=== PATIENT | male | born 1945 | race Caucasian/White ===

== ENCOUNTER 2020-05-24 12:15 | Inpatient (IN) | payer OTHER, MEDICARE ==
[2020-05-24 12:33] VITALS: BMI 31.7
[2020-05-24 13:24] LABS: BASO % 0.7 % (0-2.0); EOS % 2.1 % (0-4.5); HEMOGLOBIN 14.2 GM/dL (11.7-16.9); LYMPH % 9.4 % (8-40); MCH 32.5 pg (25.7-33.7); MCHC 34.5 g/dl (32.0-35.9); MEAN CELL VOLUME 94.3 fl (80-96); MEAN PLT VOLUME 9.5 fl (7.5-11.1); MONO % 5.2 % (3.8-10.2); NEUT % 82.6 % (42.8-82.8); PLATELET COUNT 172 K/MM3 (134-434); RBC 4.35 M/mm3 (4.00-5.60); RDW 12.7 % (11.9-15.9); WHITE BLOOD COUNT 9.8 K/mm3 (4.0-10.0)
[2020-05-24 13:32] LABS: INR 1.07 (0.83-1.09); PROTHROMBIN TIME (PATIENT) 13.1 SEC (9.7-13.0)
[2020-05-24 13:34] LABS: ACTIVATED PTT 32.5 SECONDS (25.2-36.5)
[2020-05-24 13:44] LABS: POTASSIUM 4.1 mmol/L (3.5-5.1)
[2020-05-24 13:46] LABS: CALCIUM 8.6 mg/dL (8.5-10.1)
[2020-05-24 13:47] LABS: ALBUMIN 3.5 g/dl (3.4-5.0); BLOOD UREA NITROGEN 9.7 mg/dL (7-18)
[2020-05-24 13:50] LABS: CREATININE 0.6 mg/dL (0.55-1.3)
[2020-05-24 13:51] LABS: BILIRUBIN,TOTAL 1.4 mg/dL (0.2-1); TOT PROT 6.4 g/dl (6.4-8.2)
[2020-05-24] MEDS ORDERED: ACETAMINOPHEN 500 MG TABLET (FP) ONE (14:01)
[2020-05-24] MEDS ORDERED: ACETAMINOPHEN 500 MG TABLET (FP) PO ONE (14:01)
[2020-05-24 14:29] LABS: ERYTHROCYTE SEDIMENTATION RATE 34 mm/hr (0-20)
[2020-05-25] MEDS ORDERED: MELATONIN 5 MG TABLETS PO ONE (02:54)
[2020-05-25] MEDS ORDERED: PIPERACILLIN/TAZOB 3.375 GM 3.375 GM in DEXTROSE 5%-WATER - 50 ML IVPB SCH ×2 (08:30→10:00)
[2020-05-25] MEDS ORDERED: DEXTROSE 5%-WATER - 50 ML IVPB ONE ×2 (09:31→16:03)
[2020-05-25] MEDS ORDERED: PIPERACILLIN/TAZOBACTAM 3.375 GM VIAL IVPB ONE ×2 (09:31→16:03)
[2020-05-25] MEDS: LOSARTAN POTASSIUM 50 MG TABLET PO SCH (09:44)
[2020-05-25] MEDS: ASPIRIN 81 MG CHEWABLE TABLETS PO SCH (09:44)
[2020-05-25] MEDS: EZETIMIBE 10 MG TABLET (FP) PO SCH (09:44)
[2020-05-25] MEDS: amLODIPine BESYLATE 10 MG TABLET (FP) PO SCH (09:44)
[2020-05-25] MEDS: ENOXAPARIN NA (PORCINE) 40 MG/0.4 ML DISP.SYRIN SQ SCH (09:44)
[2020-05-25] MEDS: TAMSULOSIN HCL 0.4 MG CAP PO SCH (09:44)
[2020-05-25 09:47] LABS: BASO % 0.3 % (0-2.0); HEMOGLOBIN 13.5 GM/dL (11.7-16.9); LYMPH % 11.9 % (8-40); MCH 32.2 pg (25.7-33.7); MCHC 33.8 g/dl (32.0-35.9); MEAN CELL VOLUME 95.4 fl (80-96); MEAN PLT VOLUME 9.2 fl (7.5-11.1); MONO % 5.8 % (3.8-10.2); PLATELET COUNT 162 K/MM3 (134-434); RBC 4.19 M/mm3 (4.00-5.60); RDW 12.8 % (11.9-15.9); WHITE BLOOD COUNT 8.2 K/mm3 (4.0-10.0)
[2020-05-25] MEDS ORDERED: PATIENT'S OWN MEDICATION (NON-FORMULARY) (Amlodipine Bes/Olmesartan Med [Amlodipine-Olmesa PO SCH (10:00)
[2020-05-25 10:12] LABS: POTASSIUM 3.8 mmol/L (3.5-5.1)
[2020-05-25 10:47] LABS: ALBUMIN 3.2 g/dl (3.4-5.0); CALCIUM 8.7 mg/dL (8.5-10.1)
[2020-05-25 10:48] LABS: BLOOD UREA NITROGEN 13.9 mg/dL (7-18)
[2020-05-25 10:51] LABS: CREATININE 0.7 mg/dL (0.55-1.3)
[2020-05-25 10:52] LABS: TOT PROT 5.8 g/dl (6.4-8.2)
[2020-05-25 10:54] LABS: BILIRUBIN,TOTAL 1.2 mg/dL (0.2-1)
[2020-05-25] MEDS: oxyCODONE HCL 5 MG TABLET PO PRN ×2 (14:04→20:38)
[2020-05-25] MEDS: ACETAMINOPHEN 325 MG TABLET (FP) PO PRN (14:04)
[2020-05-25] MEDS: PIPERACILLIN/TAZOB 3.375 GM 3.375 GM in DEXTROSE 5%-WATER - 50 ML IVPB SCH (17:25)
[2020-05-25] MEDS ORDERED: PT OWN MED DRAWER 7, Y5N ONE (20:36)
[2020-05-25] MEDS: ZOLPIDEM TARTRATE 5 MG TABLET PO PRN (20:40)
[2020-05-25] MEDS: FLUTICASONE PROP 0.05% 16 GM NASAL SPRAY NS SCH (21:00)
[2020-05-26] MEDS ORDERED: DEXTROSE 5%-WATER - 50 ML IVPB ONE ×3 (01:25→17:15)
[2020-05-26] MEDS ORDERED: PIPERACILLIN/TAZOBACTAM 3.375 GM VIAL IVPB ONE ×3 (01:25→17:15)
[2020-05-26] MEDS: PIPERACILLIN/TAZOB 3.375 GM 3.375 GM in DEXTROSE 5%-WATER - 50 ML IVPB SCH ×3 (01:35→17:23)
[2020-05-26] MEDS: TAMSULOSIN HCL 0.4 MG CAP PO SCH (09:20)
[2020-05-26] MEDS: oxyCODONE HCL 5 MG TABLET PO PRN ×2 (09:42→17:23)
[2020-05-26] MEDS: ACETAMINOPHEN 325 MG TABLET (FP) PO PRN ×2 (09:44→17:25)
[2020-05-26] MEDS: LOSARTAN POTASSIUM 50 MG TABLET PO SCH (09:45)
[2020-05-26] MEDS: EZETIMIBE 10 MG TABLET (FP) PO SCH (09:45)
[2020-05-26] MEDS: amLODIPine BESYLATE 10 MG TABLET (FP) PO SCH (09:46)
[2020-05-26] MEDS: ASPIRIN 81 MG CHEWABLE TABLETS PO SCH (09:46)
[2020-05-26] MEDS: METHYL SALICYLATE/MENTHOL OINT 30 GM TUBE TP PRN (09:48)
[2020-05-26] MEDS: ENOXAPARIN NA (PORCINE) 40 MG/0.4 ML DISP.SYRIN SQ SCH (09:49)
[2020-05-26] MEDS: FLUTICASONE PROP 0.05% 16 GM NASAL SPRAY NS SCH (21:06)
[2020-05-27] MEDS ORDERED: PIPERACILLIN/TAZOBACTAM 3.375 GM VIAL IVPB ONE ×3 (00:12→17:28)
[2020-05-27] MEDS ORDERED: DEXTROSE 5%-WATER - 50 ML IVPB ONE ×3 (00:12→17:28)
[2020-05-27] MEDS: PIPERACILLIN/TAZOB 3.375 GM 3.375 GM in DEXTROSE 5%-WATER - 50 ML IVPB SCH ×3 (02:09→18:08)
[2020-05-27] MEDS: ACETAMINOPHEN 325 MG TABLET (FP) PO PRN ×2 (06:04→16:24)
[2020-05-27] MEDS: oxyCODONE HCL 5 MG TABLET PO PRN ×2 (06:05→16:26)
[2020-05-27] MEDS: LOSARTAN POTASSIUM 50 MG TABLET PO SCH ×2 (07:39→09:22)
[2020-05-27] MEDS: amLODIPine BESYLATE 10 MG TABLET (FP) PO SCH ×2 (07:40→09:22)
[2020-05-27 08:15] LABS: BASO % 0.9 % (0-2.0); EOS % 3.6 % (0-4.5); HEMATOCRIT 41.5 % (35.4-49); HEMOGLOBIN 14.1 GM/dL (11.7-16.9); LYMPH % 15.9 % (8-40); MCH 32.5 pg (25.7-33.7); MCHC 34.1 g/dl (32.0-35.9); MEAN CELL VOLUME 95.5 fl (80-96); MEAN PLT VOLUME 8.9 fl (7.5-11.1); MONO % 6.3 % (3.8-10.2); NEUT % 73.3 % (42.8-82.8); PLATELET COUNT 198 K/MM3 (134-434); RBC 4.34 M/mm3 (4.00-5.60); RDW 12.6 % (11.9-15.9); WHITE BLOOD COUNT 7.5 K/mm3 (4.0-10.0)
[2020-05-27 08:20] LABS: POTASSIUM 3.6 mmol/L (3.5-5.1)
[2020-05-27 08:30] LABS: CALCIUM 8.4 mg/dL (8.5-10.1)
[2020-05-27 08:31] LABS: BLOOD UREA NITROGEN 13.5 mg/dL (7-18)
[2020-05-27 08:34] LABS: CREATININE 0.8 mg/dL (0.55-1.3)
[2020-05-27] MEDS: ASPIRIN 81 MG CHEWABLE TABLETS PO SCH (09:18)
[2020-05-27] MEDS: TAMSULOSIN HCL 0.4 MG CAP PO SCH (09:18)
[2020-05-27] MEDS: ENOXAPARIN NA (PORCINE) 40 MG/0.4 ML DISP.SYRIN SQ SCH (09:18)
[2020-05-27] MEDS: EZETIMIBE 10 MG TABLET (FP) PO SCH (09:18)
[2020-05-27] MEDS ORDERED: CYCLOBENZAPRINE HCL 10 MG TABLET (FP) PO SCH (09:45)
[2020-05-27] MEDS: PANTOPRAZOLE 20 MG TABLET PO SCH ×2 (10:40→22:02)
[2020-05-27] MEDS: CYCLOBENZAPRINE HCL 10 MG TABLET (FP) PO SCH ×3 (10:40→22:02)
[2020-05-27] MEDS: NAPROXEN 500 MG TABLET PO SCH ×2 (12:43→22:02)
[2020-05-27] MEDS: METHYL SALICYLATE/MENTHOL OINT 30 GM TUBE TP PRN (13:34)
[2020-05-27] MEDS ORDERED: PT OWN MED DRAWER 7, Y5N ONE (21:57)
[2020-05-27] MEDS: FLUTICASONE PROP 0.05% 16 GM NASAL SPRAY NS SCH (22:03)
[2020-05-27] MEDS ORDERED: POLYETHYLENE GLYCOL 3350 119 GM BTL PO ONE (23:00)
[2020-05-28] MEDS ORDERED: PIPERACILLIN/TAZOBACTAM 3.375 GM VIAL IVPB ONE ×3 (01:48→17:57)
[2020-05-28] MEDS ORDERED: DEXTROSE 5%-WATER - 50 ML IVPB ONE ×3 (01:48→17:58)
[2020-05-28] MEDS: PIPERACILLIN/TAZOB 3.375 GM 3.375 GM in DEXTROSE 5%-WATER - 50 ML IVPB SCH ×3 (01:50→18:16)
[2020-05-28] MEDS: CYCLOBENZAPRINE HCL 10 MG TABLET (FP) PO SCH ×3 (06:54→21:48)
[2020-05-28] MEDS ORDERED: PT OWN MED DRAWER 7, Y5N ONE ×2 (09:03→19:57)
[2020-05-28] MEDS: NAPROXEN 500 MG TABLET PO SCH ×2 (09:12→22:52)
[2020-05-28] MEDS: TAMSULOSIN HCL 0.4 MG CAP PO SCH (09:13)
[2020-05-28] MEDS: LOSARTAN POTASSIUM 50 MG TABLET PO SCH (09:13)
[2020-05-28] MEDS: amLODIPine BESYLATE 10 MG TABLET (FP) PO SCH (09:13)
[2020-05-28] MEDS: EZETIMIBE 10 MG TABLET (FP) PO SCH (09:14)
[2020-05-28] MEDS: ASPIRIN 81 MG CHEWABLE TABLETS PO SCH (09:14)
[2020-05-28] MEDS: PANTOPRAZOLE 20 MG TABLET PO SCH ×2 (09:14→21:48)
[2020-05-28] MEDS: ENOXAPARIN NA (PORCINE) 40 MG/0.4 ML DISP.SYRIN SQ SCH (09:14)
[2020-05-28] MEDS: POTASSIUM CHLORIDE TABS 20 MEQ TABLET.ER (FP) PO SCH (11:23)
[2020-05-28] MEDS: FUROSEMIDE 40 MG TABLET (FP) PO SCH (11:23)
[2020-05-28] MEDS: POLYETHYLENE GLYCOL 3350 119 GM BTL PO SCH (11:24)
[2020-05-28] MEDS: ZOLPIDEM TARTRATE 5 MG TABLET PO PRN (21:48)
[2020-05-28] MEDS: FLUTICASONE PROP 0.05% 16 GM NASAL SPRAY NS SCH (21:54)
[2020-05-29] MEDS ORDERED: DEXTROSE 5%-WATER - 50 ML IVPB ONE ×3 (01:41→16:58)
[2020-05-29] MEDS ORDERED: PIPERACILLIN/TAZOBACTAM 3.375 GM VIAL IVPB ONE ×3 (01:41→16:58)
[2020-05-29] MEDS: PIPERACILLIN/TAZOB 3.375 GM 3.375 GM in DEXTROSE 5%-WATER - 50 ML IVPB SCH ×3 (01:57→17:06)
[2020-05-29] MEDS: CYCLOBENZAPRINE HCL 10 MG TABLET (FP) PO SCH ×3 (06:28→21:24)
[2020-05-29] MEDS ORDERED: PT OWN MED DRAWER 7, Y5N ONE ×2 (10:10→20:23)
[2020-05-29] MEDS: ENOXAPARIN NA (PORCINE) 40 MG/0.4 ML DISP.SYRIN SQ SCH (10:15)
[2020-05-29] MEDS: POLYETHYLENE GLYCOL 3350 119 GM BTL PO SCH (10:15)
[2020-05-29] MEDS: LOSARTAN POTASSIUM 50 MG TABLET PO SCH (10:16)
[2020-05-29] MEDS: PANTOPRAZOLE 20 MG TABLET PO SCH ×2 (10:16→21:23)
[2020-05-29] MEDS: ASPIRIN 81 MG CHEWABLE TABLETS PO SCH (10:16)
[2020-05-29] MEDS: NAPROXEN 500 MG TABLET PO SCH ×2 (10:16→21:24)
[2020-05-29] MEDS: amLODIPine BESYLATE 10 MG TABLET (FP) PO SCH (10:16)
[2020-05-29] MEDS: FUROSEMIDE 40 MG TABLET (FP) PO SCH (10:16)
[2020-05-29] MEDS: TAMSULOSIN HCL 0.4 MG CAP PO SCH (10:16)
[2020-05-29] MEDS: POTASSIUM CHLORIDE TABS 20 MEQ TABLET.ER (FP) PO SCH (10:16)
[2020-05-29] MEDS: EZETIMIBE 10 MG TABLET (FP) PO SCH (10:17)
[2020-05-29] MEDS: ZOLPIDEM TARTRATE 5 MG TABLET PO PRN (21:24)
[2020-05-29] MEDS: FLUTICASONE PROP 0.05% 16 GM NASAL SPRAY NS SCH (21:24)
[2020-05-30] MEDS ORDERED: PIPERACILLIN/TAZOBACTAM 3.375 GM VIAL IVPB ONE ×2 (01:29→09:45)
[2020-05-30] MEDS ORDERED: DEXTROSE 5%-WATER - 50 ML IVPB ONE ×2 (01:29→09:45)
[2020-05-30] MEDS: PIPERACILLIN/TAZOB 3.375 GM 3.375 GM in DEXTROSE 5%-WATER - 50 ML IVPB SCH ×2 (01:56→11:30)
[2020-05-30] MEDS: CYCLOBENZAPRINE HCL 10 MG TABLET (FP) PO SCH ×2 (05:40→13:00)
[2020-05-30] MEDS: TAMSULOSIN HCL 0.4 MG CAP PO SCH (10:12)
[2020-05-30] MEDS: amLODIPine BESYLATE 10 MG TABLET (FP) PO SCH (10:12)
[2020-05-30] MEDS: POTASSIUM CHLORIDE TABS 20 MEQ TABLET.ER (FP) PO SCH (10:12)
[2020-05-30] MEDS: NAPROXEN 500 MG TABLET PO SCH (10:13)
[2020-05-30] MEDS: FUROSEMIDE 40 MG TABLET (FP) PO SCH (10:13)
[2020-05-30] MEDS: EZETIMIBE 10 MG TABLET (FP) PO SCH (10:13)
[2020-05-30] MEDS: PANTOPRAZOLE 20 MG TABLET PO SCH (10:13)
[2020-05-30] MEDS: ASPIRIN 81 MG CHEWABLE TABLETS PO SCH (10:13)
[2020-05-30] MEDS: LOSARTAN POTASSIUM 50 MG TABLET PO SCH (10:14)
[2020-05-30] MEDS: POLYETHYLENE GLYCOL 3350 119 GM BTL PO SCH (10:14)
[2020-05-30] MEDS: ENOXAPARIN NA (PORCINE) 40 MG/0.4 ML DISP.SYRIN SQ SCH (10:14)
[2020-05-30 15:40] VITALS: BP 154/83; PULSE 66; TEMP 98.1
== END 2020-05-30 16:39 | disposition home or self-care (01) | DRG 603 ==
LOC: JER 12:15 → JERBED 13:59 → J8W 05-25 00:14
PROVIDERS: ADMIT Internal Medicine; ATTEND Internal Medicine
DX: L03.116 Cellulitis of left lower limb (principal); I10 Essential (primary) hypertension; E78.5 Hyperlipidemia, unspecified
CPT/HCPCS: 36415; 71046-TC-FY; 80048; 80053; 82550; 83605; 85025; 85610; 85651; 85730; 86140; 93005; 93010; 93971-TC; 99285-25; C9803; U0003

== ENCOUNTER 2020-12-02 07:31 | Inpatient (IN) | payer OTHER, MEDICARE ==
[2020-12-02] MEDS ORDERED: ACETAMINOPHEN 1000 MG/100 ML VIAL (NON FORMULARY) IVPB ONE (08:33)
[2020-12-02] MEDS ORDERED: LACTATED RINGERS SOLUTION 1000 ML INFUS.BAG IV ONE (08:41)
[2020-12-02] MEDS ORDERED: ACETAMINOPHEN INJECTION 100 ML IVPB ONE (08:44)
[2020-12-02 09:34] LABS: BASO % 0.3 % (0-2.0); EOS % 0.7 % (0-4.5); HEMATOCRIT 36.4 % (35.4-49); HEMOGLOBIN 12.3 GM/dL (11.7-16.9); LYMPH % 2.5 % (8-40); MCH 31.1 pg (25.7-33.7); MCHC 33.7 g/dl (32.0-35.9); MEAN CELL VOLUME 92.2 fl (80-96); MONO % 1.5 % (3.8-10.2); PLATELET COUNT 137 10^3/uL (134-434); RBC 3.95 M/mm3 (4.00-5.60); RDW 12.9 % (11.9-15.9); WHITE BLOOD COUNT 11.3 K/mm3 (4.0-10.0)
[2020-12-02 09:41] LABS: INR 1.13 (0.83-1.09); PROTHROMBIN TIME (PATIENT) 13.8 SEC (9.7-13.0)
[2020-12-02 09:43] LABS: ACTIVATED PTT 27.4 SECONDS (25.2-36.5)
[2020-12-02 09:53] LABS: ALBUMIN 3.7 g/dl (3.4-5.0); CALCIUM 8.6 mg/dL (8.5-10.1)
[2020-12-02 09:55] LABS: BLOOD UREA NITROGEN 16.1 mg/dL (7-18)
[2020-12-02 09:57] LABS: CREATININE 1.1 mg/dL (0.55-1.3)
[2020-12-02 09:58] LABS: BILIRUBIN,TOTAL 1.5 mg/dL (0.2-1); TOT PROT 5.8 g/dl (6.4-8.2)
[2020-12-02 10:04] LABS: LACTIC ACID 2.1 mmol/L (0.4-2.0)
[2020-12-02] MEDS ORDERED: VANCOMYCIN HCL 2,000 MG in DEXTROSE 5%-WATER - 500 ML IVPB ONE (10:20)
[2020-12-02] MEDS ORDERED: PIPERACILLIN/TAZOB 4.5 GM 4.5 GM in DEXTROSE 5%-WATER 100 ML IVPB ONE (10:20)
[2020-12-02 10:30] LABS: ANISOCYTOSIS 0; MACROCYTOSIS 1+; PLATELET ESTIMATE DECREASED
[2020-12-02] MEDS ORDERED: PIPERACILLIN/TAZOB 4.5 GM 4.5 GM/100 ML BAG IVPB ONE (11:05)
[2020-12-02] MEDS ORDERED: VANCOMYCIN 1 GRAM (PRE-DOCKED) 2,000 MG/500 ML BAG IVPB ONE (11:16)
[2020-12-02] MEDS ORDERED: VANCOMYCIN HCL 1,500 MG in DEXTROSE 5%-WATER - 500 ML IVPB ONE (11:19)
[2020-12-02] MEDS ORDERED: VANCOMYCIN HCL 1,500 MG/500 ML BAG IVPB ONE (11:25)
[2020-12-02 11:40] LABS: EPI CELLS 1 /uL (0-25.1); HYALINE CASTS 3 /uL (0-3.1); URINE APPEARANCE CLOUDY; URINE BACTERIA >9,000 /uL (0-1359); URINE BILIRUBIN NEGATIVE (NEGATIVE); URINE COLOR YELLOW; URINE GLUCOSE (UA) NEGATIVE (NEGATIVE); URINE KETONE NEGATIVE (NEGATIVE); URINE LEUK ESTERASE 2+ (NEGATIVE); URINE NITRITE NEGATIVE (NEGATIVE); URINE PROTEIN 2+ (NEGATIVE); URINE RBC 6 /uL (0-23.9); URINE UROBILINOGEN 0.2 mg/dL (0.2-1.0); URINE WBC 471 /uL (0-25.8)
[2020-12-02 11:56] LABS: ERYTHROCYTE SEDIMENTATION RATE 17 mm/hr (0-20)
[2020-12-02] MEDS ORDERED: VANCOMYCIN PREMIX 1.5 GM 1,500 MG/300 ML BAG IVPB SCH ×2 (11:59→14:00)
[2020-12-02] MEDS ORDERED: VANCOMYCIN PREMIX 1.5 GM 1,500 MG/300 ML BAG IVPB ONE (12:00)
[2020-12-02] MEDS ORDERED: SODIUM CHLORIDE 1,000 ML IV STA (12:08)
[2020-12-02] MEDS ORDERED: SODIUM CHLORIDE 500 ML IV STA (12:09)
[2020-12-02] MEDS ORDERED: PIPERACILLIN/TAZOB 3.375 GM 3.375 GM in DEXTROSE 5%-WATER - 50 ML IVPB SCH (13:45)
[2020-12-02 15:34] VITALS: BMI 29.5
[2020-12-02] MEDS ORDERED: PIPERACILLIN/TAZOBACTAM 3.375 GM VIAL IVPB ONE (16:23)
[2020-12-02] MEDS ORDERED: DEXTROSE 5%-WATER - 50 ML IVPB ONE (16:23)
[2020-12-02] MEDS: PIPERACILLIN/TAZOB 3.375 GM 3.375 GM in DEXTROSE 5%-WATER - 50 ML IVPB SCH (17:10)
[2020-12-02] MEDS ORDERED: VANCOMYCIN HCL 1,500 MG in DEXTROSE 5%-WATER - 500 ML IVPB SCH (22:00)
[2020-12-02] MEDS ORDERED: ACETAMINOPHEN 500 MG TABLET (FP) PO ONE (22:26)
[2020-12-02] MEDS ORDERED: LIDOCAINE 5% TOPICAL PATCH TP ONE (22:27)
[2020-12-03] MEDS: VANCOMYCIN PREMIX 1.5 GM 1,500 MG/300 ML BAG IVPB SCH ×2 (00:08→13:41)
[2020-12-03] MEDS ORDERED: PIPERACILLIN/TAZOBACTAM 3.375 GM VIAL IVPB ONE ×3 (01:28→18:08)
[2020-12-03] MEDS ORDERED: DEXTROSE 5%-WATER - 50 ML IVPB ONE ×3 (01:28→18:08)
[2020-12-03] MEDS: PIPERACILLIN/TAZOB 3.375 GM 3.375 GM in DEXTROSE 5%-WATER - 50 ML IVPB SCH ×4 (02:58→18:58)
[2020-12-03] MEDS ORDERED: ENOXAPARIN NA (PORCINE) 40 MG/0.4 ML DISP.SYRIN SQ SCH (10:00)
[2020-12-03] MEDS ORDERED: LIDOCAINE PATCH REMOVAL MC SCH (10:00)
[2020-12-03] MEDS ORDERED: PATIENT'S OWN MEDICATION (NON-FORMULARY) (Amlodipine Bes/Olmesartan Med [Amlodipine-Olmesa PO SCH (10:00)
[2020-12-03] MEDS: LOSARTAN POTASSIUM 50 MG TABLET PO SCH (11:16)
[2020-12-03] MEDS: ASPIRIN 81 MG CHEWABLE TABLETS PO SCH (11:16)
[2020-12-03] MEDS: TORSEMIDE 20 MG TABLET (FP) PO SCH (11:16)
[2020-12-03] MEDS: amLODIPine BESYLATE 10 MG TABLET (FP) PO SCH (11:16)
[2020-12-03] MEDS: TAMSULOSIN HCL 0.4 MG CAP PO SCH (11:17)
[2020-12-03] MEDS ORDERED: PT OWN MED DRAWER 7, Y5N ONE ×2 (11:18→13:40)
[2020-12-03] MEDS: EZETIMIBE 10 MG TABLET (FP) PO SCH (11:19)
[2020-12-03] MEDS ORDERED: ACETAMINOPHEN 325 MG TABLET (FP) PO PRN (11:55)
[2020-12-03 14:11] LABS: BASO % 0.7 % (0-2.0); HEMATOCRIT 33.3 % (35.4-49); HEMOGLOBIN 11.4 GM/dL (11.7-16.9); LYMPH % 8.9 % (8-40); MCHC 34.3 g/dl (32.0-35.9); MEAN CELL VOLUME 93.5 fl (80-96); MEAN PLT VOLUME 9.2 fl (7.5-11.1); NEUT % 83.4 % (42.8-82.8); PLATELET COUNT 97 10^3/uL (134-434); RBC 3.57 M/mm3 (4.00-5.60); RDW 13.6 % (11.9-15.9); WHITE BLOOD COUNT 6.6 K/mm3 (4.0-10.0)
[2020-12-03 14:30] LABS: CALCIUM 8.5 mg/dL (8.5-10.1)
[2020-12-03 14:31] LABS: ALBUMIN 3.2 g/dl (3.4-5.0); BLOOD UREA NITROGEN 11.8 mg/dL (7-18)
[2020-12-03 14:34] LABS: CREATININE 0.9 mg/dL (0.55-1.3)
[2020-12-03 14:35] LABS: BILIRUBIN,TOTAL 1.2 mg/dL (0.2-1)
[2020-12-03 14:36] LABS: TOT PROT 5.3 g/dl (6.4-8.2)
[2020-12-04] MEDS ORDERED: DEXTROSE 5%-WATER - 50 ML IVPB ONE ×3 (01:17→17:52)
[2020-12-04] MEDS ORDERED: PIPERACILLIN/TAZOBACTAM 3.375 GM VIAL IVPB ONE ×3 (01:17→17:51)
[2020-12-04] MEDS: PIPERACILLIN/TAZOB 3.375 GM 3.375 GM in DEXTROSE 5%-WATER - 50 ML IVPB SCH ×3 (01:47→18:08)
[2020-12-04 08:55] LABS: BASO % 1.1 % (0-2.0); EOS % 3.4 % (0-4.5); HEMATOCRIT 33.6 % (35.4-49); HEMOGLOBIN 11.7 GM/dL (11.7-16.9); LYMPH % 14.5 % (8-40); MCH 32.1 pg (25.7-33.7); MCHC 34.7 g/dl (32.0-35.9); MEAN CELL VOLUME 92.5 fl (80-96); MEAN PLT VOLUME 8.9 fl (7.5-11.1); MONO % 8.4 % (3.8-10.2); NEUT % 72.6 % (42.8-82.8); RBC 3.63 M/mm3 (4.00-5.60); RDW 13.3 % (11.9-15.9); WHITE BLOOD COUNT 5.5 K/mm3 (4.0-10.0)
[2020-12-04] MEDS: TAMSULOSIN HCL 0.4 MG CAP PO SCH (09:00)
[2020-12-04 09:16] LABS: BLOOD UREA NITROGEN 10.1 mg/dL (7-18); CALCIUM 8.3 mg/dL (8.5-10.1)
[2020-12-04 09:20] LABS: CREATININE 0.8 mg/dL (0.55-1.3)
[2020-12-04] MEDS: ASPIRIN 81 MG CHEWABLE TABLETS PO SCH (10:10)
[2020-12-04] MEDS: LOSARTAN POTASSIUM 50 MG TABLET PO SCH (10:10)
[2020-12-04] MEDS: TORSEMIDE 20 MG TABLET (FP) PO SCH (10:11)
[2020-12-04] MEDS: amLODIPine BESYLATE 10 MG TABLET (FP) PO SCH (10:11)
[2020-12-04] MEDS: EZETIMIBE 10 MG TABLET (FP) PO SCH (10:16)
[2020-12-04 11:15] LABS: PLATELET COUNT 94 10^3/uL (134-434)
[2020-12-04] MEDS ORDERED: POTASSIUM CHLORIDE TABS 20 MEQ TABLET.ER (FP) PO SCH (13:30)
[2020-12-05] MEDS ORDERED: PIPERACILLIN/TAZOBACTAM 3.375 GM VIAL IVPB ONE ×3 (00:41→14:22)
[2020-12-05] MEDS ORDERED: DEXTROSE 5%-WATER - 50 ML IVPB ONE ×3 (00:42→14:22)
[2020-12-05] MEDS: PIPERACILLIN/TAZOB 3.375 GM 3.375 GM in DEXTROSE 5%-WATER - 50 ML IVPB SCH ×3 (01:01→17:05)
[2020-12-05 07:27] LABS: EOS % 3.8 % (0-4.5); HEMATOCRIT 35.7 % (35.4-49); HEMOGLOBIN 12.2 GM/dL (11.7-16.9); LYMPH % 19.7 % (8-40); MCH 31.7 pg (25.7-33.7); MCHC 34.1 g/dl (32.0-35.9); MEAN CELL VOLUME 92.9 fl (80-96); MEAN PLT VOLUME 8.8 fl (7.5-11.1); MONO % 9.6 % (3.8-10.2); NEUT % 65.9 % (42.8-82.8); PLATELET COUNT 118 10^3/uL (134-434); RBC 3.85 M/mm3 (4.00-5.60); RDW 13.2 % (11.9-15.9); WHITE BLOOD COUNT 5.3 K/mm3 (4.0-10.0)
[2020-12-05 07:47] LABS: BLOOD UREA NITROGEN 12.6 mg/dL (7-18); CALCIUM 8.2 mg/dL (8.5-10.1)
[2020-12-05 07:49] LABS: CREATININE 0.8 mg/dL (0.55-1.3)
[2020-12-05] MEDS: TAMSULOSIN HCL 0.4 MG CAP PO SCH (08:50)
[2020-12-05] MEDS: amLODIPine BESYLATE 10 MG TABLET (FP) PO SCH (08:59)
[2020-12-05] MEDS: TORSEMIDE 20 MG TABLET (FP) PO SCH (08:59)
[2020-12-05] MEDS: ASPIRIN 81 MG CHEWABLE TABLETS PO SCH (08:59)
[2020-12-05] MEDS: LOSARTAN POTASSIUM 50 MG TABLET PO SCH (08:59)
[2020-12-05] MEDS: EZETIMIBE 10 MG TABLET (FP) PO SCH (08:59)
[2020-12-06] MEDS ORDERED: DEXTROSE 5%-WATER - 50 ML IVPB ONE ×2 (02:20→08:53)
[2020-12-06] MEDS ORDERED: PIPERACILLIN/TAZOBACTAM 3.375 GM VIAL IVPB ONE ×2 (02:20→08:53)
[2020-12-06] MEDS: PIPERACILLIN/TAZOB 3.375 GM 3.375 GM in DEXTROSE 5%-WATER - 50 ML IVPB SCH ×2 (02:23→09:22)
[2020-12-06 05:41] VITALS: PULSE 69
[2020-12-06] MEDS ORDERED: PT OWN MED DRAWER 7, Y5N ONE (08:53)
[2020-12-06 09:20] VITALS: BP 145/84; TEMP 98.6
[2020-12-06] MEDS: TAMSULOSIN HCL 0.4 MG CAP PO SCH (09:21)
[2020-12-06] MEDS: EZETIMIBE 10 MG TABLET (FP) PO SCH (09:21)
[2020-12-06] MEDS: LOSARTAN POTASSIUM 50 MG TABLET PO SCH (09:21)
[2020-12-06] MEDS: TORSEMIDE 20 MG TABLET (FP) PO SCH (09:22)
[2020-12-06] MEDS: amLODIPine BESYLATE 10 MG TABLET (FP) PO SCH (09:22)
[2020-12-06] MEDS: ASPIRIN 81 MG CHEWABLE TABLETS PO SCH (09:22)
[2020-12-06 10:13] LABS: BASO % 1.3 % (0-2.0); EOS % 4.2 % (0-4.5); HEMATOCRIT 41.1 % (35.4-49); HEMOGLOBIN 13.8 GM/dL (11.7-16.9); LYMPH % 24.2 % (8-40); MCH 31.4 pg (25.7-33.7); MCHC 33.6 g/dl (32.0-35.9); MEAN CELL VOLUME 93.5 fl (80-96); MEAN PLT VOLUME 9.2 fl (7.5-11.1); MONO % 6.1 % (3.8-10.2); NEUT % 64.2 % (42.8-82.8); PLATELET COUNT 159 10^3/uL (134-434); RDW 13.1 % (11.9-15.9); WHITE BLOOD COUNT 5.8 K/mm3 (4.0-10.0)
[2020-12-06 10:38] LABS: CALCIUM 8.5 mg/dL (8.5-10.1)
[2020-12-06 10:39] LABS: BLOOD UREA NITROGEN 14.8 mg/dL (7-18)
[2020-12-06 10:42] LABS: CREATININE 0.9 mg/dL (0.55-1.3)
[2020-12-06] MEDS ORDERED: POTASSIUM CHLORIDE TABS 20 MEQ TABLET.ER (FP) PO ONE (13:15)
== END 2020-12-06 13:37 | disposition home or self-care (01) | DRG 872 ==
LOC: JER 07:31 → JERBED 11:58 → J7W 15:50
PROVIDERS: ATTEND Internal Medicine
DX: A41.51 Sepsis due to Escherichia coli [E. coli] (principal); N39.0 Urinary tract infection, site not specified; E87.2 Acidosis; I10 Essential (primary) hypertension; E78.5 Hyperlipidemia, unspecified; N40.0 Benign prostatic hyperplasia without lower urinary tract symptoms; M54.5 Low back pain; D69.6 Thrombocytopenia, unspecified; E87.6 Hypokalemia
CPT/HCPCS: 36415; 71045-TC-FY; 80048; 80053; 81003; 83036; 83605; 83880; 84484; 85025; 85610; 85651; 85730; 86140; 87040; 87086; 87186; 87804; 93005; 93010; 99285-25; C9803; J0131; U0003; U0005

== ENCOUNTER 2021-05-22 08:38 | Emergency (ER) | payer OTHER, MEDICARE ==
[2021-05-22 08:49] VITALS: PULSE 81; TEMP 97.5; BMI 30.1
[2021-05-22 10:20] VITALS: BP 154/83
[2021-05-22 10:38] LABS: BASO % 0.5 % (0-2.0); EOS % 2.2 % (0-4.5); HEMATOCRIT 39.4 % (35.4-49); HEMOGLOBIN 13.7 GM/dL (11.7-16.9); LYMPH % 10.2 % (8-40); MCH 32.3 pg (25.7-33.7); MCHC 34.8 g/dl (32.0-35.9); MEAN CELL VOLUME 92.8 fl (80-96); MEAN PLT VOLUME 9.2 fl (7.5-11.1); MONO % 5.9 % (3.8-10.2); NEUT % 81.2 % (42.8-82.8); PLATELET COUNT 142 10^3/uL (134-434); RBC 4.24 M/mm3 (4.00-5.60); RDW 13.3 % (11.9-15.9); WHITE BLOOD COUNT 9.2 K/mm3 (4.0-10.0)
[2021-05-22 11:06] LABS: ALBUMIN 3.4 g/dl (3.4-5.0); BLOOD UREA NITROGEN 13.6 mg/dL (7-18); CALCIUM 8.8 mg/dL (8.5-10.1)
[2021-05-22 11:08] LABS: CREATININE 0.9 mg/dL (0.55-1.3)
[2021-05-22 11:11] LABS: BILIRUBIN,TOTAL 1.1 mg/dL (0.2-1)
== END 2021-05-22 12:20 | disposition home or self-care (01) ==
LOC: JER 08:38
DX: L03.116 Cellulitis of left lower limb (principal)
CPT/HCPCS: 36415; 80053; 85025; 87040; 93971-TC; 99284-25; C9803; U0003; U0005

== ENCOUNTER 2021-11-04 13:14 | Emergency (ER) | payer OTHER, MEDICARE ==
[2021-11-04 13:29] VITALS: BP 156/79; PULSE 75; TEMP 98.6; BMI 32.5
[2021-11-04] MEDS ORDERED: ACETAMINOPHEN 500 MG TABLET (FP) PO ONE (14:24)
[2021-11-04] MEDS ORDERED: LIDOCAINE 5% TOPICAL PATCH TP ONE (14:24)
[2021-11-04] MEDS ORDERED: CEPHALEXIN MONOHYDRATE 500 MG CAPSULE (UD) PO ONE (15:10)
[2021-11-04] MEDS ORDERED: ACETAMINOPHEN 325 MG TABLET (FP) ONE (15:11)
[2021-11-04] MEDS ORDERED: LIDOCAINE 5% TOPICAL PATCH ONE (15:11)
[2021-11-04 15:31] LABS: BASO % 0.3 % (0-2.0); HEMOGLOBIN 12.4 GM/dL (11.7-16.9); LYMPH % 10.3 % (8-40); MCH 31.8 pg (25.7-33.7); MCHC 34.5 g/dl (32.0-35.9); MEAN CELL VOLUME 92.1 fl (80-96); MEAN PLT VOLUME 9.8 fl (7.5-11.1); MONO % 5.7 % (3.8-10.2); NEUT % 82.7 % (42.8-82.8); PLATELET COUNT 115 10^3/uL (134-434); RBC 3.91 M/mm3 (4.00-5.60); RDW 12.8 % (11.9-15.9)
[2021-11-04 15:40] LABS: CALCIUM 8.6 mg/dL (8.5-10.1)
[2021-11-04 15:41] LABS: ALBUMIN 3.5 g/dl (3.4-5.0); BLOOD UREA NITROGEN 14.7 mg/dL (7-18)
[2021-11-04 15:44] LABS: CREATININE 0.8 mg/dL (0.55-1.3)
[2021-11-04 15:45] LABS: ACTIVATED PTT 34.5 SECONDS (25.2-36.5); INR 1.07 (0.83-1.09); PROTHROMBIN TIME (PATIENT) 12.3 SEC (9.7-13.0)
[2021-11-04 15:46] LABS: BILIRUBIN,TOTAL 1.2 mg/dL (0.2-1); TOT PROT 5.4 g/dl (6.4-8.2)
[2021-11-04] MEDS ORDERED: CEPHALEXIN MONOHYDRATE 500 MG CAPSULE (UD) ONE ×2 (17:05→17:24)
[2021-11-04] MEDS ORDERED: LIDOCAINE PATCH REMOVAL MC ONE (22:00)
== END 2021-11-04 17:21 | disposition home or self-care (01) ==
LOC: JER 13:14
DX: R21 Rash and other nonspecific skin eruption (principal); L03.115 Cellulitis of right lower limb
CPT/HCPCS: 0241U-QW; 36415; 71046-TC-FY; 80053; 85025; 85610; 85730; 87040; 93005; 93010; 93971-TC; 99285-25

== ENCOUNTER 2022-02-28 07:59 | Emergency (ER) | payer OTHER, MEDICARE ==
[2022-02-28 08:05] VITALS: RESP 18; BMI 31.8
[2022-02-28 09:39] LABS: BASO % 0.4 % (0-2.0); EOS % 2.1 % (0-4.5); HEMATOCRIT 39.5 % (35.4-49); HEMOGLOBIN 13.6 GM/dL (11.7-16.9); LYMPH % 12.2 % (8-40); MCH 31.9 pg (25.7-33.7); MCHC 34.5 g/dl (32.0-35.9); MEAN CELL VOLUME 92.5 fl (80-96); MEAN PLT VOLUME 8.9 fl (7.5-11.1); MONO % 5.8 % (3.8-10.2); NEUT % 79.5 % (42.8-82.8); PLATELET COUNT 129 10^3/uL (134-434); RBC 4.27 M/mm3 (4.00-5.60); WHITE BLOOD COUNT 7.6 K/mm3 (4.0-10.0)
[2022-02-28 10:03] LABS: ALBUMIN 3.7 g/dl (3.4-5.0); CALCIUM 8.8 mg/dL (8.5-10.1)
[2022-02-28 10:04] LABS: BLOOD UREA NITROGEN 19.9 mg/dL (7-18)
[2022-02-28 10:07] LABS: CREATININE 1.3 mg/dL (0.55-1.3)
[2022-02-28 10:08] LABS: TOT PROT 5.9 g/dl (6.4-8.2)
[2022-02-28 10:31] LABS: ERYTHROCYTE SEDIMENTATION RATE 13 mm/hr (0-20)
[2022-02-28] MEDS ORDERED: DALBAVANCIN HCL 1,500 MG in DEXTROSE 5%-WATER - 500 ML IVPB ONE (12:45)
[2022-02-28] MEDS ORDERED: DALBAVANCIN HCL 500 MG VIAL (RESTRICTED TO ID ONLY) IVPB ONE (13:14)
[2022-02-28 19:35] VITALS: BP 159/77; PULSE 66; TEMP 98.4
== END 2022-02-28 16:15 | disposition home or self-care (01) ==
LOC: JER 07:59
PROC: 3E033GC Introduction of Other Therapeutic Substance into Peripheral Vein, Percutaneous Approach (ICD-10-PCS; principal; 2022-02-28)
DX: L03.116 Cellulitis of left lower limb (principal)
CPT/HCPCS: 36415; 73590-TC-LT-FY; 80053; 85025; 85651; 86140; 87040; 93971-TC; 99284-25; J0875

== ENCOUNTER 2022-03-27 04:41 | Day surgery (SDC) | payer OTHER, MEDICARE ==
[2022-03-26 12:37] VITALS: BMI 31.6
[2022-03-27] MEDS ORDERED: BUPIVACAINE HCL/PF 0.75% 10 ML VIAL ONE (13:25)
[2022-03-27] MEDS ORDERED: LIDOCAINE HCL/PF 1% SDV 5ML VIAL ONE (13:26)
[2022-03-27 13:48] VITALS: RESP 18
[2022-03-27] MEDS ORDERED: LIDOCAINE 1% P/F 10 MG/ML VIAL SNB ONE (14:59)
[2022-03-27] MEDS ORDERED: BUPIVACAINE HCL/PF 0.75% 10 ML VIAL NR ONE (14:59)
[2022-03-27 16:35] VITALS: BP 133/82; PULSE 60; TEMP 97.9
== END 2022-03-27 16:23 | disposition home or self-care (01) ==
LOC: JASU-SURG 04:41
PROVIDERS: ATTEND Pain Medicine Pain Medicine
PROC: BR16YZZ Fluoroscopy of Lumbar Facet Joint(s) using Other Contrast (ICD-10-PCS; 2022-03-27)
PROC: 3E0T3BZ Introduction of Anesthetic Agent into Peripheral Nerves and Plexi, Percutaneous Approach (ICD-10-PCS; principal; 2022-03-27 14:30)
DX: M47.816 Spondylosis without myelopathy or radiculopathy, lumbar region (principal)
CPT/HCPCS: 76000-TC-FY

== ENCOUNTER 2022-04-27 04:21 | Day surgery (SDC) | payer OTHER, MEDICARE ==
[2022-04-26 13:38] VITALS: BMI 31.0
[2022-04-27] MEDS ORDERED: BUPIVACAINE HCL/PF 0.75% 10 ML VIAL ONE (07:47)
[2022-04-27] MEDS ORDERED: LIDOCAINE HCL/PF 1% SDV 5ML VIAL ONE (07:47)
[2022-04-27] MEDS ORDERED: LIDOCAINE HCL 1% PRESERVATIVE FREE - 30ML VIAL IJ ONE ×2 (11:34→11:36)
[2022-04-27] MEDS ORDERED: BUPIVACAINE HCL/PF 0.75% 10 ML VIAL NR ONE ×2 (11:39→11:41)
[2022-04-27 13:04] VITALS: RESP 18
[2022-04-27 13:10] VITALS: BP 149/77; PULSE 61; TEMP 97.3
== END 2022-04-27 12:30 | disposition home or self-care (01) ==
LOC: JASU-SURG 04:21
PROVIDERS: ATTEND Pain Medicine Pain Medicine
PROC: BR16YZZ Fluoroscopy of Lumbar Facet Joint(s) using Other Contrast (ICD-10-PCS; 2022-04-27)
PROC: 3E0T3BZ Introduction of Anesthetic Agent into Peripheral Nerves and Plexi, Percutaneous Approach (ICD-10-PCS; principal; 2022-04-27 10:30)
DX: M47.816 Spondylosis without myelopathy or radiculopathy, lumbar region (principal)
CPT/HCPCS: 76000-TC-FY

== ENCOUNTER 2022-05-22 04:43 | Day surgery (SDC) | payer OTHER, MEDICARE ==
[2022-05-18 14:42] VITALS: BMI 31.0
[2022-05-22] MEDS ORDERED: LIDOCAINE HCL/PF 2% SDV 5ML VIAL ONE (07:33)
[2022-05-22] MEDS ORDERED: BUPIVACAINE HCL/PF 0.75% 10 ML VIAL ONE (07:33)
[2022-05-22] MEDS ORDERED: DEXAMETHASONE SOD PHOSPHATE 10 MG/1 ML VIAL ONE (07:33)
[2022-05-22] MEDS ORDERED: LIDOCAINE HCL/PF 1% SDV 5ML VIAL ONE (07:33)
[2022-05-22] MEDS ORDERED: LIDOCAINE HCL 1% PRESERVATIVE FREE - 30ML VIAL NR ONE (11:45)
[2022-05-22] MEDS ORDERED: BUPIVACAINE HCL/PF 0.75% 10 ML VIAL NR ONE (11:45)
[2022-05-22] MEDS ORDERED: LIDOCAINE HCL/PF 2% SDV 5ML VIAL SQ ONE (11:45)
[2022-05-22] MEDS ORDERED: LIDOCAINE HCL 1% PRESERVATIVE FREE - 30ML VIAL IJ ONE (11:45)
[2022-05-22] MEDS ORDERED: DEXAMETHASONE SOD PHOSPHATE 10 MG/1 ML VIAL IM ONE (11:45)
[2022-05-22 12:52] VITALS: RESP 15
[2022-05-22 14:12] VITALS: BP 141/78; PULSE 65; TEMP 97.3
== END 2022-05-22 13:20 | disposition home or self-care (01) ==
LOC: JASU-SURG 04:43
PROVIDERS: ATTEND Pain Medicine Pain Medicine
PROC: 3E0T3TZ Introduction of Destructive Agent into Peripheral Nerves and Plexi, Percutaneous Approach (ICD-10-PCS; principal; 2022-05-22 12:00)
DX: M54.16 Radiculopathy, lumbar region (principal)
CPT/HCPCS: 76000-TC-FY; J1100

== ENCOUNTER 2022-07-06 04:00 | Day surgery (SDC) | payer OTHER, MEDICARE ==
[2022-06-08 16:14] VITALS: BMI 31.7
[~2022-07-06 04:00] MED LIST: BUPIVACAINE HCL/PF 0.75% 10 ML VIAL NR ONE; DEXAMETHASONE SOD PHOSPHATE 10 MG/1 ML VIAL IVPUSH ONE; LIDOCAINE 1% P/F 10 MG/ML VIAL INF ONE; LIDOCAINE HCL/PF 2% SDV 5ML VIAL INF ONE
[2022-07-06] MEDS ORDERED: LIDOCAINE HCL/PF 2% SDV 5ML VIAL ONE (07:17)
[2022-07-06] MEDS ORDERED: LIDOCAINE HCL/PF 1% SDV 5ML VIAL ONE (07:18)
[2022-07-06] MEDS ORDERED: BUPIVACAINE HCL/PF 0.75% 10 ML VIAL ONE (07:18)
[2022-07-06] MEDS ORDERED: DEXAMETHASONE SOD PHOSPHATE 10 MG/1 ML VIAL ONE (07:18)
[2022-07-06 10:14] VITALS: RESP 18
[2022-07-06] MEDS ORDERED: LIDOCAINE 1% P/F 10 MG/ML VIAL INF ONE (11:04)
[2022-07-06 12:01] VITALS: BP 167/81; PULSE 72; TEMP 97.7
== END 2022-07-06 11:55 | disposition home or self-care (01) ==
LOC: JASU-SURG 04:00
PROVIDERS: ATTEND Pain Medicine Pain Medicine
PROC: 005Y3ZZ Destruction of Lumbar Spinal Cord, Percutaneous Approach (ICD-10-PCS; principal; 2022-07-06 11:15)
DX: M47.816 Spondylosis without myelopathy or radiculopathy, lumbar region (principal)
CPT/HCPCS: J1100

== ENCOUNTER 2022-09-18 04:19 | Day surgery (SDC) | payer OTHER, MEDICARE ==
[2022-09-17 10:03] VITALS: BMI 32.5
[~2022-09-18 04:19] MED LIST changes: +ACETAMINOPHEN 500 MG TABLET (FP) PO PRN; -BUPIVACAINE HCL/PF 0.75% 10 ML VIAL NR ONE; -DEXAMETHASONE SOD PHOSPHATE 10 MG/1 ML VIAL IVPUSH ONE; -LIDOCAINE 1% P/F 10 MG/ML VIAL INF ONE; -LIDOCAINE HCL/PF 2% SDV 5ML VIAL INF ONE
[2022-09-18 10:55] VITALS: RESP 16
[2022-09-18] MEDS ORDERED: LIDOCAINE HCL/PF 2% SDV 5ML VIAL PNB ONE ×2 (12:00→12:11)
[2022-09-18] MEDS ORDERED: DEXAMETHASONE SOD PHOSPHATE 10 MG/1 ML VIAL IVPUSH ONE ×2 (12:01→12:11)
[2022-09-18] MEDS ORDERED: BUPIVACAINE HCL/PF 0.75% 10 ML VIAL PNB ONE ×3 (12:01→12:11)
[2022-09-18] MEDS ORDERED: LIDOCAINE 1% P/F 10 MG/ML VIAL PNB ONE ×3 (12:02→12:12)
[2022-09-18 12:56] VITALS: BP 142/79; PULSE 76; TEMP 98.3
== END 2022-09-18 13:20 | disposition home or self-care (01) ==
LOC: JASU-SURG 04:19
PROVIDERS: ATTEND Pain Medicine Pain Medicine
PROC: 015B3ZZ Destruction of Lumbar Nerve, Percutaneous Approach (ICD-10-PCS; principal; 2022-09-18 12:00)
DX: M47.816 Spondylosis without myelopathy or radiculopathy, lumbar region (principal)
CPT/HCPCS: 76000-TC-FY; J1100

== ENCOUNTER 2022-10-15 11:27 | Emergency (ER) | payer OTHER, MEDICARE ==
[2022-10-15 11:33] VITALS: RESP 18; BMI 32.5
[2022-10-15 12:59] LABS: BASO % 0.9 % (0-2.0); EOS % 1.3 % (0-4.5); HEMATOCRIT 39.8 % (35.4-49); HEMOGLOBIN 14.1 GM/dL (11.7-16.9); LYMPH % 8.2 % (8-40); MCH 32.3 pg (25.7-33.7); MCHC 35.3 g/dl (32.0-35.9); MEAN CELL VOLUME 91.3 fl (80-96); MEAN PLT VOLUME 9.8 fl (7.5-11.1); MONO % 4.4 % (3.8-10.2); NEUT % 85.2 % (42.8-82.8); PLATELET COUNT 140 10^3/uL (134-434); RBC 4.36 M/mm3 (4.00-5.60); WHITE BLOOD COUNT 8.5 K/mm3 (4.0-10.0)
[2022-10-15 13:19] LABS: POTASSIUM 3.7 mmol/L (3.5-5.1)
[2022-10-15 13:21] LABS: ALBUMIN 3.9 g/dl (3.4-5.0); BLOOD UREA NITROGEN 12.3 mg/dL (7-18); CALCIUM 8.4 mg/dL (8.5-10.1)
[2022-10-15 13:24] LABS: CREATININE 0.8 mg/dL (0.55-1.3)
[2022-10-15 13:26] LABS: BILIRUBIN,TOTAL 1.3 mg/dL (0.2-1)
[2022-10-15] MEDS ORDERED: CEPHALEXIN 250 MG/5 ML ORAL SUSPENSION PO ONE (15:22)
[2022-10-15] MEDS ORDERED: DOXYCYCLINE HYCLATE 100 MG CAPSULE PO ONE ×2 (15:23→15:33)
[2022-10-15] MEDS ORDERED: CEPHALEXIN MONOHYDRATE 500 MG CAPSULE (UD) ONE (15:33)
[2022-10-15 16:38] VITALS: BP 138/70; PULSE 72; TEMP 97.8
== END 2022-10-15 16:38 | disposition home or self-care (01) ==
LOC: JER 11:27
DX: L03.116 Cellulitis of left lower limb (principal); M79.605 Pain in left leg
CPT/HCPCS: 36415; 73590-TC-LT-FY; 80053; 85025; 85651; 86140; 93971-TC; 99285-25

== ENCOUNTER 2022-11-02 04:16 | Day surgery (SDC) | payer OTHER, MEDICARE ==
[2022-10-26 14:10] VITALS: BMI 32.5
[~2022-11-02 04:16] MED LIST changes: -ACETAMINOPHEN 500 MG TABLET (FP) PO PRN; +DEXAMETHASONE SOD PHOSPHATE 10 MG/1 ML VIAL IVPUSH ONE; +IOHEXOL 180 MG/1 ML ML IJ ONE; +LIDOCAINE HCL 1% PRESERVATIVE FREE - 30ML VIAL INF ONE; +TRIAMCINOLONE ACET 40MG/1ML VIAL IM ONE
[2022-11-02] MEDS ORDERED: TRIAMCINOLONE ACET 40MG/1ML VIAL ONE (07:26)
[2022-11-02] MEDS ORDERED: BUPIVACAINE HCL/PF 0.5% (5MG/ML) 10 ML VIAL ONE (07:26)
[2022-11-02] MEDS ORDERED: LIDOCAINE HCL/PF 1% SDV 5ML VIAL ONE (07:27)
[2022-11-02] MEDS ORDERED: DEXAMETHASONE SOD PHOSPHATE 10 MG/1 ML VIAL IVPUSH ONE (12:25)
[2022-11-02] MEDS ORDERED: TRIAMCINOLONE ACET 40MG/1ML VIAL IM ONE (12:25)
[2022-11-02] MEDS ORDERED: IOHEXOL 180 MG/1 ML ML IJ ONE ×2 (12:25)
[2022-11-02] MEDS ORDERED: LIDOCAINE HCL 1% PRESERVATIVE FREE - 30ML VIAL INF ONE (12:25)
[2022-11-02] MEDS ORDERED: ACETAMINOPHEN 500 MG TABLET (FP) PO PRN (13:39)
[2022-11-02 14:22] VITALS: BP 145/76; PULSE 56; RESP 20; TEMP 98.6
== END 2022-11-02 13:45 | disposition home or self-care (01) ==
LOC: JASU-SURG 04:16
PROVIDERS: ATTEND Pain Medicine Pain Medicine
PROC: 3E0U3BZ Introduction of Anesthetic Agent into Joints, Percutaneous Approach (ICD-10-PCS; 2022-11-02)
PROC: 3E0U33Z Introduction of Anti-inflammatory into Joints, Percutaneous Approach (ICD-10-PCS; principal; 2022-11-02 12:02)
DX: M53.3 Sacrococcygeal disorders, not elsewhere classified (principal)
CPT/HCPCS: 76000-TC-FY; J1100

== ENCOUNTER 2023-02-23 13:58 | Emergency (ER) | payer OTHER, MEDICARE ==
[2023-02-23 14:03] VITALS: BMI 33.4
[2023-02-23] MEDS ORDERED: CEPHALEXIN MONOHYDRATE 500 MG CAPSULE (UD) PO ONE (16:49)
[2023-02-23] MEDS ORDERED: CEPHALEXIN MONOHYDRATE 500 MG CAPSULE (UD) ONE (16:50)
[2023-02-23 16:57] VITALS: BP 154/82; PULSE 70; RESP 18; TEMP 98.4
== END 2023-02-23 17:03 | disposition home or self-care (01) ==
LOC: JER 13:58
DX: L03.115 Cellulitis of right lower limb (principal)
CPT/HCPCS: 99283-25

== ENCOUNTER 2023-06-01 10:43 | Inpatient (IN) | payer OTHER, MEDICARE ==
[2023-06-01] MEDS ORDERED: DALBAVANCIN HCL 1,500 MG in DEXTROSE 5%-WATER - 500 ML IVPB ONE ×2 (11:49→13:36)
[2023-06-01] MEDS ORDERED: CLINDAMYCIN 600MG PREMIX IVPB 600 MG/50 ML BAG IVPB ONE ×3 (11:51→20:40)
[2023-06-01 12:07] LABS: HEMATOCRIT 41.4 % (35.4-49); HEMOGLOBIN 13.9 GM/dL (11.7-16.9); MCH 31.6 pg (25.7-33.7); MCHC 33.6 g/dl (32.0-35.9); MEAN PLT VOLUME 8.6 fl (7.5-11.1); PLATELET COUNT 133 10^3/uL (134-434); WHITE BLOOD COUNT 16.9 K/mm3 (4.0-10.0)
[2023-06-01 12:31] LABS: POTASSIUM 3.9 mmol/L (3.5-5.1)
[2023-06-01 12:33] LABS: CALCIUM 9.2 mg/dL (8.5-10.1)
[2023-06-01 12:34] LABS: ALBUMIN 3.7 g/dl (3.4-5.0); BLOOD UREA NITROGEN 12.5 mg/dL (7-18); MAGNESIUM 1.7 mg/dL (1.8-2.4)
[2023-06-01 12:37] LABS: CREATININE 0.7 mg/dL (0.55-1.3)
[2023-06-01 12:38] LABS: BILIRUBIN,TOTAL 1.2 mg/dL (0.2-1)
[2023-06-01] MEDS ORDERED: MAGNESIUM SULF 50% (8.12 MEQ/2 ML-1 GM VIAL) IVPB ONE (12:43)
[2023-06-01] MEDS ORDERED: VANCOMYCIN 1,000 MG in DEXTROSE 5%-WATER - 250 ML IVPB ONE (12:45)
[2023-06-01 13:09] LABS: ANISOCYTOSIS 0; HELMET CELLS 0; HOWELL-JOLLY BODIES 0; MACROCYTOSIS 0; OVALOCYTE 0; ROULEAU 0; SICKELED CELLS 0; TARGET CELLS 0; TEAR DROP CELLS 0; TOXIC GRANULATION 0
[2023-06-01] MEDS ORDERED: VANCOMYCIN 1 GRAM (PRE-DOCKED) 1,000 MG/250 ML BAG IVPB ONE (13:26)
[2023-06-01] MEDS ORDERED: PIPERACILLIN/TAZOB 4.5 GM 4.5 GM/100 ML BAG IVPB ONE (13:26)
[2023-06-01] MEDS ORDERED: MAGNESIUM 1GM/D5W - 1 GM/100 ML IVPB IVPB ONE (13:26)
[2023-06-01] MEDS: PIPERACILLIN/TAZOB 4.5 GM 4.5 GM in DEXTROSE 5%-WATER 100 ML IVPB ONE ×2 (13:34→13:41)
[2023-06-01] MEDS ORDERED: ACETAMINOPHEN 325 MG TABLET (FP) PO PRN (15:48)
[2023-06-01 19:45] VITALS: RESP 18; BMI 30.1
[2023-06-01] MEDS: HEPARIN NA (PORCINE) 5,000 UNITS/ML 1ML VIAL SQ SCH (21:05)
[2023-06-02] MEDS ORDERED: TAMSULOSIN HCL 0.4 MG CAP PO SCH (08:30)
[2023-06-02] MEDS: HEPARIN NA (PORCINE) 5,000 UNITS/ML 1ML VIAL SQ SCH (09:00)
[2023-06-02 09:08] LABS: BASO % 0.4 % (0-2.0); EOS % 1.3 % (0-4.5); HEMATOCRIT 37.8 % (35.4-49); LYMPH % 10.7 % (8-40); MCH 32.1 pg (25.7-33.7); MCHC 34.3 g/dl (32.0-35.9); MEAN CELL VOLUME 93.5 fl (80-96); MEAN PLT VOLUME 9.1 fl (7.5-11.1); MONO % 4.5 % (3.8-10.2); NEUT % 83.1 % (42.8-82.8); PLATELET COUNT 115 10^3/uL (134-434); RBC 4.04 M/mm3 (4.00-5.60); RDW 13.2 % (11.9-15.9); WHITE BLOOD COUNT 9.7 K/mm3 (4.0-10.0)
[2023-06-02 09:36] LABS: ALBUMIN 3.1 g/dl (3.4-5.0); BLOOD UREA NITROGEN 10.1 mg/dL (7-18); CALCIUM 8.2 mg/dL (8.5-10.1); POTASSIUM 3.5 mmol/L (3.5-5.1)
[2023-06-02 09:40] LABS: CREATININE 0.7 mg/dL (0.55-1.3)
[2023-06-02 09:41] LABS: TOT PROT 5.1 g/dl (6.4-8.2)
[2023-06-02] MEDS ORDERED: EZETIMIBE 10 MG TABLET (FP) PO SCH (10:00)
[2023-06-02] MEDS ORDERED: ISOSORBIDE MONONITRATE 30 MG TAB.SR.24H (FP) PO SCH (10:00)
[2023-06-02 12:17] VITALS: PULSE 66
[2023-06-02 14:29] VITALS: BP 142/81; TEMP 97.9
== END 2023-06-02 16:00 | disposition home or self-care (01) | DRG 603 ==
LOC: JER 10:43 → JERBED 15:21 → J6S 18:49
PROVIDERS: ADMIT Internal Medicine; ATTEND Internal Medicine
DX: L03.116 Cellulitis of left lower limb (principal); L03.115 Cellulitis of right lower limb; I10 Essential (primary) hypertension; E78.5 Hyperlipidemia, unspecified; B35.3 Tinea pedis; N40.0 Benign prostatic hyperplasia without lower urinary tract symptoms; Z96.653 Presence of artificial knee joint, bilateral
CPT/HCPCS: 36415; 73590-TC-RT-FY; 80053; 82962; 83735; 85025; 85651; 86140; 87040; 93971-TC; 99285-25; J0875; J1644

== ENCOUNTER 2023-06-18 11:59 | Inpatient (IN) | payer OTHER, MEDICARE ==
[2023-06-18] MEDS ORDERED: ACETAMINOPHEN 1000 MG/100 ML BAG IVPB ONE (13:01)
[2023-06-18] MEDS ORDERED: ACETAMINOPHEN INJECTION 100 ML IVPB ONE (13:06)
[2023-06-18 13:36] LABS: HEMATOCRIT 40.2 % (35.4-49); HEMOGLOBIN 13.6 GM/dL (11.7-16.9); MCH 31.6 pg (25.7-33.7); MCHC 33.8 g/dl (32.0-35.9); MEAN CELL VOLUME 93.4 fl (80-96); MEAN PLT VOLUME 8.5 fl (7.5-11.1); PLATELET COUNT 148 10^3/uL (134-434); RBC 4.31 M/mm3 (4.00-5.60); RDW 12.6 % (11.9-15.9); WHITE BLOOD COUNT 17.9 K/mm3 (4.0-10.0)
[2023-06-18 14:06] LABS: INR 1.1 (0.83-1.09); PROTHROMBIN TIME (PATIENT) 12.8 SEC (9.7-13.0)
[2023-06-18 14:09] LABS: ACTIVATED PTT 27.2 SECONDS (25.2-36.5)
[2023-06-18 14:18] LABS: POTASSIUM 3.9 mmol/L (3.5-5.1)
[2023-06-18 14:22] LABS: CALCIUM 8.3 mg/dL (8.5-10.1)
[2023-06-18 14:23] LABS: ALBUMIN 3.4 g/dl (3.4-5.0); BLOOD UREA NITROGEN 13.6 mg/dL (7-18)
[2023-06-18 14:26] LABS: CREATININE 0.9 mg/dL (0.55-1.3)
[2023-06-18 14:27] LABS: TOT PROT 5.7 g/dl (6.4-8.2)
[2023-06-18 14:44] LABS: ANISOCYTOSIS 1+; MACROCYTOSIS 0
[2023-06-18] MEDS ORDERED: CLINDAMYCIN 600MG PREMIX IVPB 600 MG/50 ML BAG IVPB ONE ×2 (15:52→16:13)
[2023-06-18] MEDS ORDERED: NAPROXEN 500 MG TABLET PO ONE (17:10)
[2023-06-18] MEDS ORDERED: NAPROXEN 500 MG TABLET ONE (17:16)
[2023-06-18] MEDS ORDERED: PIPERACILLIN/TAZOB 3.375 GM 3.375 GM/50 ML BAG IVPB ONE (17:17)
[2023-06-18] MEDS: PIPERACILLIN/TAZOB 3.375 GM 3.375 GM in DEXTROSE 5%-WATER - 50 ML IVPB SCH ×2 (17:29→18:46)
[2023-06-18] MEDS: HEPARIN NA (PORCINE) 5,000 UNITS/ML 1ML VIAL SQ SCH (23:08)
[2023-06-19 00:48] VITALS: BMI 30.1
[2023-06-19] MEDS: PIPERACILLIN/TAZOB 3.375 GM 3.375 GM in DEXTROSE 5%-WATER - 50 ML IVPB SCH ×3 (01:41→11:33)
[2023-06-19] MEDS: EZETIMIBE 10 MG TABLET (FP) PO SCH (09:16)
[2023-06-19] MEDS: ISOSORBIDE MONONITRATE 30 MG TAB.SR.24H (FP) PO SCH (09:16)
[2023-06-19] MEDS: METOPROLOL TARTRATE 50 MG TABLET (FP) PO SCH ×2 (09:16→21:53)
[2023-06-19] MEDS: hydrALAZINE HCL 25 MG TABLET (FP) PO SCH ×2 (09:16→21:53)
[2023-06-19] MEDS: TAMSULOSIN HCL 0.4 MG CAP PO SCH (09:16)
[2023-06-19] MEDS: TORSEMIDE 20 MG TABLET (FP) PO SCH (09:16)
[2023-06-19] MEDS: LOSARTAN POTASSIUM 50 MG TABLET PO SCH (09:16)
[2023-06-19] MEDS: ASPIRIN 81 MG CHEWABLE TABLETS PO SCH (09:16)
[2023-06-19] MEDS: HEPARIN NA (PORCINE) 5,000 UNITS/ML 1ML VIAL SQ SCH ×2 (09:17→21:53)
[2023-06-19 09:33] LABS: HEMATOCRIT 35.9 % (35.4-49); MCH 31.8 pg (25.7-33.7); MCHC 33.5 g/dl (32.0-35.9); MEAN CELL VOLUME 94.9 fl (80-96); MEAN PLT VOLUME 9.4 fl (7.5-11.1); PLATELET COUNT 136 10^3/uL (134-434); RBC 3.78 M/mm3 (4.00-5.60); RDW 12.9 % (11.9-15.9); WHITE BLOOD COUNT 18.6 K/mm3 (4.0-10.0)
[2023-06-19 09:51] LABS: POTASSIUM 3.6 mmol/L (3.5-5.1)
[2023-06-19 09:55] LABS: CALCIUM 8.3 mg/dL (8.5-10.1)
[2023-06-19 09:56] LABS: ALBUMIN 2.8 g/dl (3.4-5.0); BLOOD UREA NITROGEN 23.4 mg/dL (7-18)
[2023-06-19 09:59] LABS: CREATININE 0.9 mg/dL (0.55-1.3)
[2023-06-19 10:00] LABS: BILIRUBIN,TOTAL 1.7 mg/dL (0.2-1)
[2023-06-19] MEDS ORDERED: PATIENT'S OWN MEDICATION (NON-FORMULARY) (Amlodipine Bes/Olmesartan Med [Amlodipine-Olmesa PO SCH (10:00)
[2023-06-19] MEDS ORDERED: amLODIPine BESYLATE 10 MG TABLET (FP) PO SCH (10:00)
[2023-06-19 10:01] LABS: TOT PROT 4.9 g/dl (6.4-8.2)
[2023-06-19 10:36] LABS: ANISOCYTOSIS 0; MACROCYTOSIS 0
[2023-06-19] MEDS: CEFAZOLIN SODIUM 2 GM in DEXTROSE 5%-WATER 100 ML IVPB SCH (17:06)
[2023-06-19] MEDS ORDERED: MELATONIN 5 MG TABLETS PO PRN (18:21)
[2023-06-19] MEDS ORDERED: ACETAMINOPHEN 1000 MG/100 ML BAG IVPB ONE (21:30)
[2023-06-20] MEDS: CEFAZOLIN SODIUM 2 GM in DEXTROSE 5%-WATER 100 ML IVPB SCH ×3 (01:54→17:41)
[2023-06-20] MEDS: hydrALAZINE HCL 25 MG TABLET (FP) PO SCH ×2 (09:37→22:09)
[2023-06-20] MEDS: LOSARTAN POTASSIUM 50 MG TABLET PO SCH (09:37)
[2023-06-20] MEDS: ASPIRIN 81 MG CHEWABLE TABLETS PO SCH (09:37)
[2023-06-20] MEDS: TORSEMIDE 20 MG TABLET (FP) PO SCH (09:37)
[2023-06-20] MEDS: HEPARIN NA (PORCINE) 5,000 UNITS/ML 1ML VIAL SQ SCH ×2 (09:37→22:09)
[2023-06-20] MEDS: ISOSORBIDE MONONITRATE 30 MG TAB.SR.24H (FP) PO SCH (09:37)
[2023-06-20] MEDS: TAMSULOSIN HCL 0.4 MG CAP PO SCH (09:37)
[2023-06-20] MEDS: EZETIMIBE 10 MG TABLET (FP) PO SCH (09:39)
[2023-06-20] MEDS: METOPROLOL TARTRATE 50 MG TABLET (FP) PO SCH ×2 (09:40→22:09)
[2023-06-20] MEDS: ACETAMINOPHEN 1000 MG/100 ML BAG IVPB PRN (16:27)
[2023-06-20 19:00] LABS: BASO % 0.3 % (0-2.0); EOS % 0.4 % (0-4.5); HEMATOCRIT 37.4 % (35.4-49); HEMOGLOBIN 12.5 GM/dL (11.7-16.9); LYMPH % 8.5 % (8-40); MCH 31.6 pg (25.7-33.7); MCHC 33.4 g/dl (32.0-35.9); MEAN CELL VOLUME 94.8 fl (80-96); MEAN PLT VOLUME 9.8 fl (7.5-11.1); NEUT % 85.8 % (42.8-82.8); PLATELET COUNT 149 10^3/uL (134-434); RBC 3.95 M/mm3 (4.00-5.60); RDW 13.5 % (11.9-15.9); WHITE BLOOD COUNT 10.7 K/mm3 (4.0-10.0)
[2023-06-20] MEDS ORDERED: traZODone HCL 50 MG TABLET (FP) PO ONE (22:00)
[2023-06-21] MEDS: CEFAZOLIN SODIUM 2 GM in DEXTROSE 5%-WATER 100 ML IVPB SCH ×3 (02:35→18:38)
[2023-06-21] MEDS ORDERED: FUROSEMIDE 40 MG/4 ML INJECTABLE VIAL IVPUSH ONE (09:03)
[2023-06-21] MEDS: ASPIRIN 81 MG CHEWABLE TABLETS PO SCH (09:22)
[2023-06-21] MEDS: TAMSULOSIN HCL 0.4 MG CAP PO SCH (09:22)
[2023-06-21] MEDS: hydrALAZINE HCL 25 MG TABLET (FP) PO SCH ×2 (09:22→21:13)
[2023-06-21] MEDS: LOSARTAN POTASSIUM 50 MG TABLET PO SCH (09:22)
[2023-06-21] MEDS: EZETIMIBE 10 MG TABLET (FP) PO SCH (09:22)
[2023-06-21] MEDS: METOPROLOL TARTRATE 50 MG TABLET (FP) PO SCH ×2 (09:22→21:13)
[2023-06-21] MEDS: ISOSORBIDE MONONITRATE 30 MG TAB.SR.24H (FP) PO SCH (09:22)
[2023-06-21] MEDS: HEPARIN NA (PORCINE) 5,000 UNITS/ML 1ML VIAL SQ SCH ×2 (09:23→21:14)
[2023-06-21] MEDS ORDERED: AMMONIUM LACTATE 12% LOTION 225 GM BOTTLE TP PRN (09:39)
[2023-06-21 10:43] LABS: POTASSIUM 3.4 mmol/L (3.5-5.1)
[2023-06-21 10:47] LABS: ALBUMIN 3.1 g/dl (3.4-5.0); BLOOD UREA NITROGEN 15.9 mg/dL (7-18); CALCIUM 9.1 mg/dL (8.5-10.1)
[2023-06-21 10:49] LABS: URIC ACID 3.2 mg/dL (2.6-7.2)
[2023-06-21 10:50] LABS: CREATININE 0.7 mg/dL (0.55-1.3)
[2023-06-21 10:51] LABS: BILIRUBIN,TOTAL 1.5 mg/dL (0.2-1)
[2023-06-21 10:53] LABS: BASO % 0.6 % (0-2.0); EOS % 0.3 % (0-4.5); HEMATOCRIT 38.8 % (35.4-49); HEMOGLOBIN 13.3 GM/dL (11.7-16.9); MCH 32.2 pg (25.7-33.7); MCHC 34.2 g/dl (32.0-35.9); MEAN CELL VOLUME 94.1 fl (80-96); MEAN PLT VOLUME 9.6 fl (7.5-11.1); MONO % 5.1 % (3.8-10.2); PLATELET COUNT 157 10^3/uL (134-434); RBC 4.12 M/mm3 (4.00-5.60); RDW 13.1 % (11.9-15.9); WHITE BLOOD COUNT 7.8 K/mm3 (4.0-10.0)
[2023-06-21] MEDS: traZODone HCL 50 MG TABLET (FP) PO SCH (21:14)
[2023-06-22] MEDS: CEFAZOLIN SODIUM 2 GM in DEXTROSE 5%-WATER 100 ML IVPB SCH ×3 (01:28→17:51)
[2023-06-22] MEDS: EZETIMIBE 10 MG TABLET (FP) PO SCH (09:09)
[2023-06-22] MEDS: ISOSORBIDE MONONITRATE 30 MG TAB.SR.24H (FP) PO SCH (09:09)
[2023-06-22] MEDS: ASPIRIN 81 MG CHEWABLE TABLETS PO SCH (09:09)
[2023-06-22] MEDS: hydrALAZINE HCL 25 MG TABLET (FP) PO SCH ×2 (09:09→22:00)
[2023-06-22] MEDS: METOPROLOL TARTRATE 50 MG TABLET (FP) PO SCH ×2 (09:10→21:59)
[2023-06-22] MEDS: HEPARIN NA (PORCINE) 5,000 UNITS/ML 1ML VIAL SQ SCH ×2 (09:10→21:59)
[2023-06-22] MEDS: TAMSULOSIN HCL 0.4 MG CAP PO SCH (09:10)
[2023-06-22] MEDS: LOSARTAN POTASSIUM 50 MG TABLET PO SCH (09:10)
[2023-06-22] MEDS: TORSEMIDE 20 MG TABLET (FP) PO SCH (09:16)
[2023-06-22] MEDS: traZODone HCL 50 MG TABLET (FP) PO SCH (21:59)
[2023-06-22] MEDS: ACETAMINOPHEN 1000 MG/100 ML BAG IVPB PRN (23:04)
[2023-06-23] MEDS: CEFAZOLIN SODIUM 2 GM in DEXTROSE 5%-WATER 100 ML IVPB SCH ×3 (02:29→17:11)
[2023-06-23 08:40] LABS: BASO % 0.9 % (0-2.0); EOS % 2.4 % (0-4.5); HEMATOCRIT 34.8 % (35.4-49); HEMOGLOBIN 11.7 GM/dL (11.7-16.9); LYMPH % 20.1 % (8-40); MCHC 33.7 g/dl (32.0-35.9); MEAN CELL VOLUME 94.9 fl (80-96); MEAN PLT VOLUME 9.2 fl (7.5-11.1); NEUT % 69.6 % (42.8-82.8); PLATELET COUNT 165 10^3/uL (134-434); RBC 3.66 M/mm3 (4.00-5.60); WHITE BLOOD COUNT 5.1 K/mm3 (4.0-10.0)
[2023-06-23 08:53] LABS: POTASSIUM 3.3 mmol/L (3.5-5.1)
[2023-06-23 08:55] LABS: ALBUMIN 2.6 g/dl (3.4-5.0); CALCIUM 8.6 mg/dL (8.5-10.1)
[2023-06-23 08:56] LABS: BLOOD UREA NITROGEN 17.5 mg/dL (7-18)
[2023-06-23 08:58] LABS: CREATININE 0.5 mg/dL (0.55-1.3)
[2023-06-23 09:00] LABS: BILIRUBIN,TOTAL 0.7 mg/dL (0.2-1); TOT PROT 5.1 g/dl (6.4-8.2)
[2023-06-23] MEDS: TAMSULOSIN HCL 0.4 MG CAP PO SCH (10:29)
[2023-06-23] MEDS: LOSARTAN POTASSIUM 50 MG TABLET PO SCH (10:29)
[2023-06-23] MEDS: TORSEMIDE 20 MG TABLET (FP) PO SCH (10:29)
[2023-06-23] MEDS: hydrALAZINE HCL 25 MG TABLET (FP) PO SCH ×2 (10:29→22:42)
[2023-06-23] MEDS: METOPROLOL TARTRATE 50 MG TABLET (FP) PO SCH ×2 (10:30→22:42)
[2023-06-23] MEDS: EZETIMIBE 10 MG TABLET (FP) PO SCH (10:30)
[2023-06-23] MEDS: ASPIRIN 81 MG CHEWABLE TABLETS PO SCH (10:30)
[2023-06-23] MEDS: ISOSORBIDE MONONITRATE 30 MG TAB.SR.24H (FP) PO SCH (10:30)
[2023-06-23] MEDS: HEPARIN NA (PORCINE) 5,000 UNITS/ML 1ML VIAL SQ SCH ×2 (10:30→22:42)
[2023-06-23] MEDS ORDERED: ACETAMINOPHEN 500 MG TABLET (FP) PO PRN (20:11)
[2023-06-23] MEDS: traZODone HCL 50 MG TABLET (FP) PO SCH (22:42)
[2023-06-23] MEDS: ACETAMINOPHEN 1000 MG/100 ML BAG IVPB PRN (22:43)
[2023-06-24] MEDS: CEFAZOLIN SODIUM 2 GM in DEXTROSE 5%-WATER 100 ML IVPB SCH ×3 (02:55→17:44)
[2023-06-24] MEDS: METOPROLOL TARTRATE 50 MG TABLET (FP) PO SCH ×2 (09:31→21:00)
[2023-06-24] MEDS: TAMSULOSIN HCL 0.4 MG CAP PO SCH (09:31)
[2023-06-24] MEDS: TORSEMIDE 20 MG TABLET (FP) PO SCH (09:31)
[2023-06-24] MEDS: hydrALAZINE HCL 25 MG TABLET (FP) PO SCH ×2 (09:31→21:00)
[2023-06-24] MEDS: ASPIRIN 81 MG CHEWABLE TABLETS PO SCH (09:31)
[2023-06-24] MEDS: ISOSORBIDE MONONITRATE 30 MG TAB.SR.24H (FP) PO SCH (09:32)
[2023-06-24] MEDS: LOSARTAN POTASSIUM 50 MG TABLET PO SCH (09:32)
[2023-06-24] MEDS: EZETIMIBE 10 MG TABLET (FP) PO SCH (09:32)
[2023-06-24] MEDS: HEPARIN NA (PORCINE) 5,000 UNITS/ML 1ML VIAL SQ SCH ×2 (09:32→21:00)
[2023-06-24] MEDS: CELECOXIB 200 MG CAPSULE PO SCH (09:52)
[2023-06-24 10:50] LABS: BASO % 0.9 % (0-2.0); HEMATOCRIT 40.4 % (35.4-49); HEMOGLOBIN 13.5 GM/dL (11.7-16.9); LYMPH % 18.2 % (8-40); MCH 31.5 pg (25.7-33.7); MCHC 33.4 g/dl (32.0-35.9); MEAN CELL VOLUME 94.5 fl (80-96); MONO % 5.8 % (3.8-10.2); NEUT % 73.1 % (42.8-82.8); PLATELET COUNT 241 10^3/uL (134-434); RBC 4.28 M/mm3 (4.00-5.60); RDW 13.1 % (11.9-15.9); WHITE BLOOD COUNT 6.6 K/mm3 (4.0-10.0)
[2023-06-24 11:03] LABS: POTASSIUM 3.5 mmol/L (3.5-5.1)
[2023-06-24 11:04] LABS: CALCIUM 8.6 mg/dL (8.5-10.1)
[2023-06-24 11:05] LABS: BLOOD UREA NITROGEN 18.7 mg/dL (7-18)
[2023-06-24 11:08] LABS: CREATININE 0.7 mg/dL (0.55-1.3)
[2023-06-24] MEDS: traZODone HCL 50 MG TABLET (FP) PO SCH (21:00)
[2023-06-24] MEDS ORDERED: MELATONIN 5 MG TABLETS PO ONE (21:39)
[2023-06-25] MEDS: CEFAZOLIN SODIUM 2 GM in DEXTROSE 5%-WATER 100 ML IVPB SCH ×3 (02:17→17:39)
[2023-06-25 06:07] LABS: ANTI-DNAse B <78 U/mL (0-120)
[2023-06-25] MEDS: ISOSORBIDE MONONITRATE 30 MG TAB.SR.24H (FP) PO SCH (09:52)
[2023-06-25] MEDS: ASPIRIN 81 MG CHEWABLE TABLETS PO SCH (09:52)
[2023-06-25] MEDS: HEPARIN NA (PORCINE) 5,000 UNITS/ML 1ML VIAL SQ SCH (09:52)
[2023-06-25] MEDS: LOSARTAN POTASSIUM 50 MG TABLET PO SCH (09:52)
[2023-06-25] MEDS: TORSEMIDE 20 MG TABLET (FP) PO SCH (09:52)
[2023-06-25] MEDS: EZETIMIBE 10 MG TABLET (FP) PO SCH (09:53)
[2023-06-25] MEDS: hydrALAZINE HCL 25 MG TABLET (FP) PO SCH ×2 (09:53→21:38)
[2023-06-25] MEDS: METOPROLOL TARTRATE 50 MG TABLET (FP) PO SCH ×2 (09:53→21:38)
[2023-06-25] MEDS: POTASSIUM CHLORIDE TABS 10 MEQ TABLET.ER (FP) PO SCH (09:53)
[2023-06-25] MEDS: CELECOXIB 200 MG CAPSULE PO SCH (09:53)
[2023-06-25] MEDS: TAMSULOSIN HCL 0.4 MG CAP PO SCH (09:53)
[2023-06-25] MEDS: traZODone HCL 50 MG TABLET (FP) PO SCH (21:38)
[2023-06-25] MEDS: ACETAMINOPHEN 500 MG TABLET (FP) PO PRN (22:18)
[2023-06-26] MEDS: CEFAZOLIN SODIUM 2 GM in DEXTROSE 5%-WATER 100 ML IVPB SCH ×3 (01:50→18:06)
[2023-06-26 09:41] VITALS: RESP 20
[2023-06-26] MEDS: hydrALAZINE HCL 25 MG TABLET (FP) PO SCH ×2 (10:07→21:23)
[2023-06-26] MEDS: POTASSIUM CHLORIDE TABS 10 MEQ TABLET.ER (FP) PO SCH (10:07)
[2023-06-26] MEDS: ASPIRIN 81 MG CHEWABLE TABLETS PO SCH (10:07)
[2023-06-26] MEDS: TORSEMIDE 20 MG TABLET (FP) PO SCH (10:08)
[2023-06-26] MEDS: TAMSULOSIN HCL 0.4 MG CAP PO SCH (10:08)
[2023-06-26] MEDS: ISOSORBIDE MONONITRATE 30 MG TAB.SR.24H (FP) PO SCH (10:08)
[2023-06-26] MEDS: METOPROLOL TARTRATE 50 MG TABLET (FP) PO SCH ×2 (10:08→21:23)
[2023-06-26] MEDS: EZETIMIBE 10 MG TABLET (FP) PO SCH (10:08)
[2023-06-26] MEDS: CELECOXIB 200 MG CAPSULE PO SCH (10:08)
[2023-06-26] MEDS: LOSARTAN POTASSIUM 50 MG TABLET PO SCH (10:08)
[2023-06-26] MEDS: ACETAMINOPHEN 500 MG TABLET (FP) PO PRN (21:23)
[2023-06-26] MEDS: traZODone HCL 50 MG TABLET (FP) PO SCH (21:23)
[2023-06-27] MEDS: CEFAZOLIN SODIUM 2 GM in DEXTROSE 5%-WATER 100 ML IVPB SCH ×2 (01:26→09:24)
[2023-06-27] MEDS: EZETIMIBE 10 MG TABLET (FP) PO SCH (09:23)
[2023-06-27] MEDS: hydrALAZINE HCL 25 MG TABLET (FP) PO SCH (09:23)
[2023-06-27] MEDS: TORSEMIDE 20 MG TABLET (FP) PO SCH (09:23)
[2023-06-27] MEDS: METOPROLOL TARTRATE 50 MG TABLET (FP) PO SCH (09:23)
[2023-06-27] MEDS: TAMSULOSIN HCL 0.4 MG CAP PO SCH (09:23)
[2023-06-27] MEDS: LOSARTAN POTASSIUM 50 MG TABLET PO SCH (09:23)
[2023-06-27] MEDS: CELECOXIB 200 MG CAPSULE PO SCH (09:23)
[2023-06-27] MEDS: POTASSIUM CHLORIDE TABS 10 MEQ TABLET.ER (FP) PO SCH (09:23)
[2023-06-27] MEDS: ISOSORBIDE MONONITRATE 30 MG TAB.SR.24H (FP) PO SCH (09:24)
[2023-06-27] MEDS: ASPIRIN 81 MG CHEWABLE TABLETS PO SCH (09:24)
[2023-06-27 12:46] VITALS: BP 148/70; PULSE 67; TEMP 98.6
== END 2023-06-27 13:11 | DRG 603 ==
LOC: JER 11:59 → JERBED 15:52 → J6S 20:35 → JERBED 21:52 → J8W 23:03
PROVIDERS: ADMIT Family Medicine; ATTEND Family Medicine
DX: L03.116 Cellulitis of left lower limb (principal); I10 Essential (primary) hypertension; E78.5 Hyperlipidemia, unspecified; N40.0 Benign prostatic hyperplasia without lower urinary tract symptoms; R60.9 Edema, unspecified; B35.3 Tinea pedis; M54.30 Sciatica, unspecified side; M25.572 Pain in left ankle and joints of left foot; E80.6 Other disorders of bilirubin metabolism; Z96.653 Presence of artificial knee joint, bilateral
CPT/HCPCS: 36415; 73590-TC-LT-FY; 73630-TC-LT; 80048; 80053; 82962; 84443; 84550; 85025; 85610; 85651; 85730; 86140; 86215; 86850; 86900; 86901; 87040; 87081; 93005; 93010; 93926-TC; 93971-TC; 97116-GP; 99285-25; J1644

== ENCOUNTER 2023-07-15 09:45 | Emergency (ER) | payer OTHER, MEDICARE ==
[2023-07-15 10:07] VITALS: BMI 28.5
[2023-07-15] MEDS ORDERED: IBUPROFEN 600 MG TABLET (FP) PO ONE (13:24)
[2023-07-15] MEDS: IBUPROFEN 600 MG TABLET (FP) PO ONE (13:26)
[2023-07-15 13:36] LABS: BASO % 0.4 % (0-2.0); EOS % 1.3 % (0-4.5); HEMATOCRIT 35.3 % (35.4-49); LYMPH % 15.3 % (8-40); MEAN CELL VOLUME 94.3 fl (80-96); MEAN PLT VOLUME 8.9 fl (7.5-11.1); MONO % 5.9 % (3.8-10.2); NEUT % 77.1 % (42.8-82.8); PLATELET COUNT 139 10^3/uL (134-434); RBC 3.75 M/mm3 (4.00-5.60); RDW 12.9 % (11.9-15.9); WHITE BLOOD COUNT 6.6 K/mm3 (4.0-10.0)
[2023-07-15 13:49] LABS: CHLORIDE 109 mmol/L (98-107); POTASSIUM 4.3 mmol/L (3.5-5.1); SODIUM 144 mmol/L (136-145)
[2023-07-15 13:51] LABS: ALBUMIN 3.5 g/dl (3.4-5.0); ANION GAP 7 mmol/L (4-13); BLOOD UREA NITROGEN 12.6 mg/dL (7-18); CALCIUM 8.9 mg/dL (8.5-10.1); CO2 28 mmol/L (21-32); GLUCOSE,RANDOM 95 mg/dL (74-106)
[2023-07-15 13:53] LABS: CREATININE 0.7 mg/dL (0.55-1.3); SGPT/ALT 18 U/L (13-61)
[2023-07-15 13:55] LABS: BILIRUBIN,TOTAL 0.9 mg/dL (0.2-1); SGOT/AST 11 U/L (15-37); TOT PROT 5.7 g/dl (6.4-8.2)
[2023-07-15 13:56] LABS: ALK PHOS 73 U/L (45-117)
[2023-07-15 14:17] LABS: ERYTHROCYTE SEDIMENTATION RATE 38 mm/hr (0-20)
[2023-07-15] MEDS ORDERED: FUROSEMIDE 40 MG TABLET (FP) ONE (14:45)
[2023-07-15] MEDS: FUROSEMIDE 40 MG TABLET (FP) PO ONE (14:55)
[2023-07-15 14:58] VITALS: BP 145/80; PULSE 59; RESP 17; TEMP 99.4
== END 2023-07-15 15:15 | disposition home or self-care (01) ==
LOC: JER 09:45
DX: M25.572 Pain in left ankle and joints of left foot (principal); R22.42 Localized swelling, mass and lump, left lower limb; R60.0 Localized edema; E87.70 Fluid overload, unspecified
CPT/HCPCS: 36415; 73610-TC-LT-FY; 73630-TC-LT; 80053; 85025; 85651; 86140; 99284-25

== ENCOUNTER 2023-08-04 09:54 | Inpatient (IN) | payer OTHER, MEDICARE ==
[2023-08-04 09:59] VITALS: BMI 27.3
[2023-08-04] MEDS ORDERED: FAMOTIDINE 20 MG/50 ML IVPB 20 MG/50 ML MG IVPB ONE (11:32)
[2023-08-04] MEDS ORDERED: MAG HYDROX/AL HYDROX/SIMETH 30 ML UNIT-DOSE CUP ONE (11:48)
[2023-08-04] MEDS ORDERED: ONDANSETRON 4 MG/2 ML VIAL ONE (11:48)
[2023-08-04] MEDS ORDERED: ACETAMINOPHEN INJECTION 100 ML IVPB ONE (11:48)
[2023-08-04] MEDS: ACETAMINOPHEN 1000 MG/100 ML BAG IVPB ONE (12:15)
[2023-08-04] MEDS: SODIUM CHLORIDE 1,000 ML IV STA (12:15)
[2023-08-04] MEDS: ONDANSETRON 4 MG/2 ML VIAL IVPUSH ONE (12:15)
[2023-08-04 12:24] LABS: BASO % 0.5 % (0-2.0); EOS % 0.4 % (0-4.5); HEMATOCRIT 40.5 % (35.4-49); HEMOGLOBIN 13.7 GM/dL (11.7-16.9); LYMPH % 10.1 % (8-40); MCH 31.9 pg (25.7-33.7); MCHC 33.8 g/dl (32.0-35.9); MEAN CELL VOLUME 94.3 fl (80-96); MEAN PLT VOLUME 8.4 fl (7.5-11.1); MONO % 6.6 % (3.8-10.2); NEUT % 82.4 % (42.8-82.8); PLATELET COUNT 184 10^3/uL (134-434); WHITE BLOOD COUNT 9.4 K/mm3 (4.0-10.0)
[2023-08-04] MEDS: MAG HYDROX/AL HYDROX/SIMETH 30 ML UNIT-DOSE CUP PO ONE (12:33)
[2023-08-04 12:36] LABS: INR 1.16 (0.83-1.09); PROTHROMBIN TIME (PATIENT) 13.4 SEC (9.7-13.0)
[2023-08-04 12:39] LABS: ACTIVATED PTT 34.8 SECONDS (25.2-36.5)
[2023-08-04 12:40] LABS: POTASSIUM 4.1 mmol/L (3.5-5.1)
[2023-08-04 12:42] LABS: CALCIUM 9.2 mg/dL (8.5-10.1)
[2023-08-04 12:43] LABS: ALBUMIN 3.7 g/dl (3.4-5.0); BLOOD UREA NITROGEN 13.8 mg/dL (7-18); MAGNESIUM 1.9 mg/dL (1.8-2.4)
[2023-08-04 12:46] LABS: CREATININE 0.9 mg/dL (0.55-1.3); PHOSPHOROUS 4.1 mg/dL (2.5-4.9)
[2023-08-04 12:47] LABS: BILIRUBIN,TOTAL 1.1 mg/dL (0.2-1)
[2023-08-04] MEDS ORDERED: SUCRALFATE 1 GM TABLET (FP) ONE (14:40)
[2023-08-04] MEDS: SUCRALFATE 1 GM TABLET (FP) PO ONE (14:45)
[2023-08-04 15:16] LABS: EPI CELLS 20 /uL (0-25.1); HYALINE CASTS 2 /uL (0-3.1); PH,URINE 5.5 (5.0-8.0); URINE APPEARANCE CLEAR; URINE BACTERIA 4 /uL (0-1359); URINE BILIRUBIN NEGATIVE (NEGATIVE); URINE COLOR YELLOW; URINE GLUCOSE (UA) NEGATIVE (NEGATIVE); URINE KETONE 1+ (NEGATIVE); URINE LEUK ESTERASE 1+ (NEGATIVE); URINE NITRITE NEGATIVE (NEGATIVE); URINE PROTEIN TRACE (NEGATIVE); URINE RBC 30 /uL (0-23.9); URINE WBC 176 /uL (0-25.8)
[2023-08-04] MEDS ORDERED: CEFTRIAXONE 1 GM/50 ML BAG ONE ×2 (15:29→19:23)
[2023-08-04] MEDS: CEFTRIAXONE 1,000 MG in DEXTROSE 5%-WATER - 50 ML IVPB ONE (15:33)
[2023-08-04] MEDS: SODIUM CHLORIDE 0.9% 500 ML INFUS.BAG IV ONE (18:45)
[2023-08-04] MEDS: DEXTROSE 5%-0.45% SALINE 1,000 ML IV SCH (21:11)
[2023-08-05] MEDS ORDERED: ONDANSETRON 4 MG/2 ML VIAL IVPUSH PRN (07:08)
[2023-08-05] MEDS ORDERED: CEFTRIAXONE 1 GM/50 ML BAG ONE (07:54)
[2023-08-05 08:17] LABS: POTASSIUM 3.6 mmol/L (3.5-5.1)
[2023-08-05 08:20] LABS: CALCIUM 8.5 mg/dL (8.5-10.1)
[2023-08-05 08:21] LABS: BLOOD UREA NITROGEN 8.9 mg/dL (7-18)
[2023-08-05 08:24] LABS: CREATININE 0.7 mg/dL (0.55-1.3)
[2023-08-05 08:30] LABS: BASO % 1.1 % (0-2.0); EOS % 2.2 % (0-4.5); HEMATOCRIT 38.8 % (35.4-49); LYMPH % 17.8 % (8-40); MCH 31.9 pg (25.7-33.7); MCHC 33.6 g/dl (32.0-35.9); MEAN CELL VOLUME 94.7 fl (80-96); MEAN PLT VOLUME 8.9 fl (7.5-11.1); MONO % 6.7 % (3.8-10.2); NEUT % 72.2 % (42.8-82.8); PLATELET COUNT 144 10^3/uL (134-434); RBC 4.09 M/mm3 (4.00-5.60); WHITE BLOOD COUNT 6.3 K/mm3 (4.0-10.0)
[2023-08-05] MEDS: CEFTRIAXONE 1 GM in DEXTROSE 5%-WATER - 50 ML IVPB SCH (09:49)
[2023-08-05] MEDS: hydrALAZINE HCL 20 MG/ML VIAL IVPUSH PRN (15:28)
[2023-08-05] MEDS: ACETAMINOPHEN 1000 MG/100 ML BAG IVPB PRN (23:51)
[2023-08-06] MEDS: ACETAMINOPHEN 1000 MG/100 ML BAG IVPB PRN (21:36)
[2023-08-07 05:24] VITALS: RESP 20
[2023-08-07] MEDS ORDERED: ACETAMINOPHEN 325 MG TABLET (FP) PO PRN (10:21)
[2023-08-07 13:51] VITALS: TEMP 98
[2023-08-07] MEDS: LOSARTAN POTASSIUM 50 MG TABLET PO SCH (13:57)
[2023-08-07 15:30] VITALS: BP 155/85; PULSE 98
[2023-08-07] MEDS: METOPROLOL TARTRATE 50 MG TABLET (FP) PO ONE (15:38)
[2023-08-07] MEDS ORDERED: hydrALAZINE HCL 25 MG TABLET (FP) PO SCH (22:00)
[2023-08-08] MEDS ORDERED: TAMSULOSIN HCL 0.4 MG CAP PO SCH (08:30)
[2023-08-08] MEDS ORDERED: LOSARTAN POTASSIUM 50 MG TABLET PO SCH (10:00)
[2023-08-08] MEDS ORDERED: TORSEMIDE 20 MG TABLET (FP) PO SCH (10:00)
[2023-08-08] MEDS ORDERED: ASPIRIN COATED 81 MG TABLET.EC PO SCH (10:00)
== END 2023-08-07 17:07 | disposition home or self-care (01) | DRG 390 ==
LOC: JER 09:54 → JERBED 18:17 → J8W 08-05 13:51
PROVIDERS: ADMIT Internal Medicine; ATTEND Family Medicine
DX: K56.690 Other partial intestinal obstruction (principal); K42.9 Umbilical hernia without obstruction or gangrene; I10 Essential (primary) hypertension; E78.5 Hyperlipidemia, unspecified; K57.90 Diverticulosis of intestine, part unspecified, without perforation or abscess without bleeding; K80.20 Calculus of gallbladder without cholecystitis without obstruction; N40.0 Benign prostatic hyperplasia without lower urinary tract symptoms; R19.7 Diarrhea, unspecified
CPT/HCPCS: 0241U-QW; 36415; 71046-TC-FY; 74019-TC-FY; 74177-TC; 76705-TC; 80048; 80053; 81003; 83690; 83735; 84100; 84484; 85025; 85610; 85730; 87086; 93005; 93010; 97116-GP; 97161-GP; 99285-25; J0131

== ENCOUNTER 2024-05-25 09:21 | Inpatient (IN) | payer OTHER, MEDICARE ==
[2024-05-25 10:24] LABS: BASO % 0.6 % (0-2.0); HEMATOCRIT 40.1 % (35.4-49); LYMPH % 15.6 % (8-40); MCH 32.5 pg (25.7-33.7); MEAN CELL VOLUME 92.6 fl (80-96); MONO % 5.4 % (3.8-10.2); NEUT % 76.4 % (42.8-82.8); PLATELET COUNT 186 10^3/uL (134-434); RBC 4.33 M/mm3 (4.00-5.60); RDW 12.5 % (11.9-15.9); WHITE BLOOD COUNT 7.4 K/mm3 (4.0-10.0)
[2024-05-25 10:32] LABS: INR 1.04 (0.83-1.09)
[2024-05-25 10:35] LABS: ACTIVATED PTT 34.8 SECONDS (25.2-36.5)
[2024-05-25 10:43] LABS: POTASSIUM 3.4 mmol/L (3.5-5.1)
[2024-05-25 10:45] LABS: CALCIUM 8.9 mg/dL (8.5-10.1)
[2024-05-25 10:47] LABS: ALBUMIN 3.5 g/dl (3.4-5.0)
[2024-05-25 10:49] LABS: CREATININE 0.9 mg/dL (0.55-1.3)
[2024-05-25 10:50] LABS: BILIRUBIN,TOTAL 0.9 mg/dL (0.2-1)
[2024-05-25 10:51] LABS: TOT PROT 5.8 g/dl (6.4-8.2)
[2024-05-25] MEDS ORDERED: PIPERACILLIN/TAZOB 4.5 GM 4.5 GM/100 ML BAG IVPB ONE (11:43)
[2024-05-25] MEDS ORDERED: VANCOMYCIN 1 GM PREMIX (F) 1 GM/200 ML BAG ONE (11:43)
[2024-05-25] MEDS: PIPERACILLIN/TAZOB 4.5 GM 4.5 GM in DEXTROSE 5%-WATER 100 ML IVPB ONE (12:13)
[2024-05-25] MEDS: VANCOMYCIN 1,000 MG in DEXTROSE 5%-WATER - 250 ML IVPB ONE (12:31)
[2024-05-25 14:12] LABS: PH,URINE 7.5 (5.0-8.0); URINE APPEARANCE CLEAR; URINE BILIRUBIN NEGATIVE (NEGATIVE); URINE COLOR YELLOW; URINE GLUCOSE (UA) NEGATIVE (NEGATIVE); URINE KETONE NEGATIVE (NEGATIVE); URINE LEUK ESTERASE NEGATIVE (NEGATIVE); URINE NITRITE NEGATIVE (NEGATIVE); URINE PROTEIN TRACE (NEGATIVE); URINE UROBILINOGEN 0.2 mg/dL (0.2-1.0)
[2024-05-25 17:03] VITALS: BMI 30.4
[2024-05-26] MEDS: PIPERACILLIN/TAZOB 3.375 GM 3.375 GM in DEXTROSE 5%-WATER - 50 ML IVPB SCH (01:20)
[2024-05-26] MEDS: TAMSULOSIN HCL 0.4 MG CAP PO SCH (08:39)
[2024-05-26] MEDS: ISOSORBIDE MONONITRATE 30 MG TAB.SR.24H (FP) PO SCH (09:29)
[2024-05-26] MEDS: LOSARTAN POTASSIUM 50 MG TABLET PO SCH (09:29)
[2024-05-26 09:50] LABS: BASO % 0.7 % (0-2.0); EOS % 2.7 % (0-4.5); HEMATOCRIT 40.5 % (35.4-49); HEMOGLOBIN 14.1 GM/dL (11.7-16.9); LYMPH % 15.8 % (8-40); MCH 32.3 pg (25.7-33.7); MCHC 34.8 g/dl (32.0-35.9); MEAN CELL VOLUME 92.7 fl (80-96); MEAN PLT VOLUME 8.2 fl (7.5-11.1); MONO % 5.3 % (3.8-10.2); NEUT % 75.5 % (42.8-82.8); PLATELET COUNT 187 10^3/uL (134-434); RBC 4.37 M/mm3 (4.00-5.60); RDW 12.4 % (11.9-15.9); WHITE BLOOD COUNT 6.8 K/mm3 (4.0-10.0)
[2024-05-26 10:01] LABS: POTASSIUM 3.5 mmol/L (3.5-5.1)
[2024-05-26 10:08] LABS: CALCIUM 8.8 mg/dL (8.5-10.1)
[2024-05-26 10:09] LABS: ALBUMIN 3.3 g/dl (3.4-5.0); BLOOD UREA NITROGEN 12.2 mg/dL (7-18); MAGNESIUM 1.7 mg/dL (1.8-2.4)
[2024-05-26 10:13] LABS: BILIRUBIN,TOTAL 1.3 mg/dL (0.2-1); TOT PROT 5.7 g/dl (6.4-8.2)
[2024-05-26] MEDS: MAGNESIUM OXIDE 400 MG TABLET (FP) PO SCH (11:27)
[2024-05-26] MEDS: hydrALAZINE HCL 25 MG TABLET (FP) PO SCH (13:05)
[2024-05-26] MEDS: VANCOMYCIN/WATER FOR INJ (PEG) 1,000 MG/200 ML BAG IVPB SCH (21:34)
[2024-05-26] MEDS: BACITRACIN ZINC 15 GM TUBE TOPICAL OINTMENT TP SCH (21:34)
[2024-05-27] MEDS: PIPERACILLIN/TAZOB 3.375 GM 50 ML IVPB SCH (01:23)
[2024-05-27] MEDS: SILVER SULFADIAZINE 1% TOP CREAM 50 GM JAR TP SCH (10:33)
[2024-05-28] MEDS ORDERED: PIPERACILLIN/TAZOB 3.375 GM 3.375 GM in DEXTROSE 5%-WATER - 50 ML IVPB SCH (02:00)
[2024-05-28 06:06] VITALS: RESP 18
[2024-05-28] MEDS ORDERED: hydrALAZINE HCL 50 MG TABLET (FP) PO SCH (09:09)
[2024-05-28 10:57] VITALS: BP 168/80; PULSE 67; TEMP 98.3
== END 2024-05-28 11:13 | disposition home or self-care (01) | DRG 920 ==
LOC: JER 09:21 → JERBED 13:59 → J7W 15:57
PROVIDERS: ADMIT Family Medicine; ATTEND Family Medicine
DX: L76.81 Other intraoperative complications of skin and subcutaneous tissue (principal); L03.116 Cellulitis of left lower limb; L97.929 Non-pressure chronic ulcer of unspecified part of left lower leg with unspecified severity; I10 Essential (primary) hypertension; Y83.9 Surgical procedure, unspecified as the cause of abnormal reaction of the patient, or of later complication, without mention of misadventure at the time of the procedure
CPT/HCPCS: 36415; 73590-TC-LT-FY; 80053; 81003; 83735; 84443; 85025; 85610; 85730; 86850; 86900; 86901; 87040; 87070; 87086; 87205; 93005; 93010; 99285-25

== ENCOUNTER 2024-09-06 09:19 | Inpatient (IN) | payer OTHER ==
[2024-09-06 09:30] VITALS: BMI 31.0
[2024-09-06] MEDS ORDERED: PIPERACILLIN/TAZOB 4.5 GM 4.5 GM/100 ML BAG IVPB ONE (10:19)
[2024-09-06] MEDS ORDERED: CLINDAMYCIN 600MG PREMIX IVPB 600 MG/50 ML BAG IVPB ONE (10:19)
[2024-09-06] MEDS ORDERED: VANCOMYCIN 1 GM PREMIX (F) 1 GM/200 ML BAG ONE (10:20)
[2024-09-06] MEDS: VANCOMYCIN 1,000 MG in DEXTROSE 5%-WATER - 250 ML IVPB ONE (10:30)
[2024-09-06] MEDS: LACTATED RINGERS SOLUTION 1000 ML INFUS.BAG IV ONE (10:30)
[2024-09-06 10:59] LABS: URINE APPEARANCE CLEAR; URINE BILIRUBIN NEGATIVE (NEGATIVE); URINE COLOR YELLOW; URINE GLUCOSE (UA) NEGATIVE (NEGATIVE); URINE KETONE NEGATIVE (NEGATIVE); URINE LEUK ESTERASE NEGATIVE (NEGATIVE); URINE NITRITE NEGATIVE (NEGATIVE); URINE PROTEIN NEGATIVE (NEGATIVE); URINE UROBILINOGEN 0.2 mg/dL (0.2-1.0)
[2024-09-06 11:00] LABS: HEMATOCRIT 41.6 % (40.1-51.0); HEMOGLOBIN 13.9 g/dL (13.7-17.5); MCHC 33.4 g/dl (32.3-36.5); MEAN CELL VOLUME 93.5 fl (79.0-92.2); MEAN PLT VOLUME 11.5 fl (9.4-12.4); PLATELET COUNT 88 x10^3/uL (163-337); RDW 12.6 % (12.2-16.6)
[2024-09-06 11:05] LABS: INR 1.06 (0.83-1.09); PROTHROMBIN TIME (PATIENT) 11.7 SEC (9.7-13.0)
[2024-09-06 11:06] LABS: VENOUS BASE EXCESS 3.7 mmol/L (-2-2); VENOUS O2 SATURATION 62.8 % (70-80); VENOUS PCO2 42.5 mmHg (38-52); VENOUS PH 7.441 (7.310-7.410)
[2024-09-06 11:08] LABS: ACTIVATED PTT 29.5 SECONDS (25.2-36.5)
[2024-09-06] MEDS: CLINDAMYCIN 900 MG PREMIX IVPB 900 MG/50 ML BAG IVPB ONE ×2 (11:12→13:00)
[2024-09-06 11:18] LABS: POTASSIUM 5.7 mmol/L (3.5-5.1)
[2024-09-06 11:20] LABS: CALCIUM 8.7 mg/dL (8.5-10.1)
[2024-09-06 11:21] LABS: ALBUMIN 3.3 g/dl (3.4-5.0); BLOOD UREA NITROGEN 28.9 mg/dL (7-18); MAGNESIUM 2.4 mg/dL (1.8-2.4)
[2024-09-06 11:23] LABS: MONOCYTE # 0.23 x10^3/uL (0.30-0.82)
[2024-09-06 11:24] LABS: CREATININE 1.3 mg/dL (0.55-1.3)
[2024-09-06 11:38] LABS: ERYTHROCYTE SEDIMENTATION RATE 33 mm/hr (0-20)
[2024-09-06] MEDS ORDERED: ACETAMINOPHEN 500 MG TABLET (FP) ONE (11:45)
[2024-09-06] MEDS: ACETAMINOPHEN 500 MG TABLET (FP) PO ONE (12:10)
[2024-09-06] MEDS: CLINDAMYCIN 600MG PREMIX IVPB 600 MG/50 ML BAG IVPB ONE (13:09)
[2024-09-06] MEDS: PIPERACILLIN/TAZOB 4.5 GM 4.5 GM in DEXTROSE 5%-WATER 100 ML IVPB ONE (13:10)
[2024-09-06] MEDS ORDERED: ASPIRIN 81 MG CHEWABLE TABLETS PO SCH (16:00)
[2024-09-06] MEDS: PIPERACILLIN/TAZOB 3.375 GM 50 ML IVPB SCH (18:25)
[2024-09-06 19:17] LABS: POTASSIUM 3.2 mmol/L (3.5-5.1)
[2024-09-06 19:19] LABS: CALCIUM 8.8 mg/dL (8.5-10.1)
[2024-09-06 19:20] LABS: BLOOD UREA NITROGEN 28.7 mg/dL (7-18)
[2024-09-06 19:23] LABS: CREATININE 1.1 mg/dL (0.55-1.3)
[2024-09-06] MEDS: hydrALAZINE HCL 25 MG TABLET (FP) PO SCH (21:35)
[2024-09-06] MEDS: MAGNESIUM OXIDE 400 MG TABLET (FP) PO SCH (21:35)
[2024-09-06] MEDS: HEPARIN NA (PORCINE) 5,000 UNITS/ML 1ML VIAL SQ SCH (21:35)
[2024-09-07] MEDS: PIPERACILLIN/TAZOB 3.375 GM 50 ML IVPB SCH (01:53)
[2024-09-07 07:08] LABS: ABSOLUTE IMMATURE GRANULOCYTES 0.02 x10^3/uL (0.0-0.031); BASOPHILS # 0.02 x10^3/uL (0.01-0.08); EOSINOPHIL % 1.4 % (0.8-7.0); EOSINOPHILS # 0.09 x10^3/uL (0.04-0.54); HEMATOCRIT 38.1 % (40.1-51.0); HEMOGLOBIN 12.8 g/dL (13.7-17.5); MCHC 33.6 g/dl (32.3-36.5); MEAN CELL VOLUME 93.4 fl (79.0-92.2); MEAN PLT VOLUME 11.8 fl (9.4-12.4); MONOCYTE # 0.48 x10^3/uL (0.30-0.82); MONOCYTE % 7.6 % (5.3-12.2); PLATELET COUNT 96 x10^3/uL (163-337); RDW 12.6 % (12.2-16.6)
[2024-09-07 07:35] LABS: POTASSIUM 3.1 mmol/L (3.5-5.1)
[2024-09-07 07:49] LABS: CALCIUM 8.3 mg/dL (8.5-10.1)
[2024-09-07 07:50] LABS: BLOOD UREA NITROGEN 22.8 mg/dL (7-18); MAGNESIUM 2.4 mg/dL (1.8-2.4)
[2024-09-07 07:54] LABS: BILIRUBIN,TOTAL 0.8 mg/dL (0.2-1); TOT PROT 5.1 g/dl (6.4-8.2)
[2024-09-07] MEDS: TAMSULOSIN HCL 0.4 MG CAP PO SCH (08:28)
[2024-09-07] MEDS ORDERED: TAMSULOSIN HCL 0.4 MG CAP PO SCH (08:30)
[2024-09-07] MEDS ORDERED: METOPROLOL TARTRATE 50 MG TABLET (FP) PO SCH (10:00)
[2024-09-07] MEDS ORDERED: EZETIMIBE 10 MG TABLET (FP) PO SCH (10:00)
[2024-09-07] MEDS ORDERED: TORSEMIDE 20 MG TABLET (FP) PO SCH (10:00)
[2024-09-07] MEDS ORDERED: ISOSORBIDE MONONITRATE 30 MG TAB.SR.24H (FP) PO SCH (10:00)
[2024-09-07] MEDS ORDERED: LOSARTAN POTASSIUM 50 MG TABLET PO SCH (10:00)
[2024-09-07] MEDS: HEPARIN NA (PORCINE) 5,000 UNITS/ML 1ML VIAL SQ SCH (10:18)
[2024-09-07] MEDS: hydrALAZINE HCL 25 MG TABLET (FP) PO SCH (10:19)
[2024-09-07] MEDS: EZETIMIBE 10 MG TABLET (FP) PO SCH (10:19)
[2024-09-07] MEDS: TORSEMIDE 20 MG TABLET (FP) PO SCH (10:19)
[2024-09-07] MEDS: MAGNESIUM OXIDE 400 MG TABLET (FP) PO SCH (10:19)
[2024-09-07] MEDS: METOPROLOL TARTRATE 50 MG TABLET (FP) PO SCH (10:20)
[2024-09-07] MEDS: ISOSORBIDE MONONITRATE 30 MG TAB.SR.24H (FP) PO SCH (10:20)
[2024-09-07] MEDS: POTASSIUM CHLORIDE TABS 20 MEQ TABLET.ER (FP) PO ONE (11:48)
[2024-09-07] MEDS: LOSARTAN POTASSIUM 50 MG TABLET PO ONE (12:34)
[2024-09-07] MEDS: ASPIRIN 81 MG CHEWABLE TABLETS PO SCH (17:36)
[2024-09-07] MEDS: ACETAMINOPHEN 1000 MG/100 ML BAG IVPB ONE (21:42)
[2024-09-07] MEDS: MELATONIN 5 MG TABLETS PO PRN (21:42)
[2024-09-08] MEDS: CEFAZOLIN 2 GM/D5W 2 GM/50 ML ML IVPB SCH (01:41)
[2024-09-08 07:17] LABS: HEMATOCRIT 38.6 % (40.1-51.0); HEMOGLOBIN 12.8 g/dL (13.7-17.5); MCHC 33.2 g/dl (32.3-36.5); MEAN CELL VOLUME 94.6 fl (79.0-92.2); MEAN PLT VOLUME 11.4 fl (9.4-12.4); PLATELET COUNT 108 x10^3/uL (163-337); RDW 12.5 % (12.2-16.6)
[2024-09-08 07:39] LABS: POTASSIUM 3.6 mmol/L (3.5-5.1)
[2024-09-08 07:44] LABS: CALCIUM 8.2 mg/dL (8.5-10.1)
[2024-09-08 07:45] LABS: BLOOD UREA NITROGEN 22.1 mg/dL (7-18)
[2024-09-08 07:49] LABS: CREATININE 1.2 mg/dL (0.55-1.3)
[2024-09-08] MEDS: LOSARTAN POTASSIUM 50 MG TABLET PO SCH (10:58)
[2024-09-08] MEDS: hydrALAZINE HCL 25 MG TABLET (FP) PO SCH (22:43)
[2024-09-09] MEDS: hydrALAZINE HCL 20 MG/ML VIAL IVPUSH ONE ×2 (04:19→06:52)
[2024-09-09] MEDS: PIPERACILLIN/TAZOB 3.375 GM 3.375 GM in DEXTROSE 5%-WATER - 50 ML IVPB SCH ×2 (10:17→14:03)
[2024-09-09 14:17] VITALS: BP 135/79; PULSE 66; RESP 18; TEMP 98.4
== END 2024-09-09 16:16 | disposition home or self-care (01) | DRG 863 ==
LOC: JER 09:19 → JERBED 14:15 → J6S 15:54 → J4W 23:57
PROVIDERS: ADMIT Family Medicine; ATTEND Family Medicine
DX: T81.49XA Infection following a procedure, other surgical site, initial encounter (principal); L03.116 Cellulitis of left lower limb; I10 Essential (primary) hypertension; I25.10 Atherosclerotic heart disease of native coronary artery without angina pectoris; N40.0 Benign prostatic hyperplasia without lower urinary tract symptoms; E78.5 Hyperlipidemia, unspecified; R79.89 Other specified abnormal findings of blood chemistry; I36.1 Nonrheumatic tricuspid (valve) insufficiency; Y83.8 Other surgical procedures as the cause of abnormal reaction of the patient, or of later complication, without mention of misadventure at the time of the procedure
CPT/HCPCS: 0241U-QW; 36415; 71045-TC-FY; 73562-TC-LT-FY; 73590-TC-LT-FY; 73610-TC-LT-FY; 73630-TC-LT; 73701-TC-RT; 80048; 80053; 81003; 82803; 83605; 83735; 84443; 84484; 85025; 85027; 85610; 85651; 85730; 86140; 86850; 86900; 86901; 87040; 87086; 93005; 93010; 93971-TC; 99285-25; J0131; J1644; Q9967